=== PATIENT | female | born 1955 | race Caucasian/White ===

== ENCOUNTER → 2016-11-27 16:57 | Outpatient (CLI) | payer MEDICARE, MEDICAID ==
[2016-10-04 13:15] VITALS: BMI 26.5
[~2016-11-27 16:57] MED LIST: BAYER CHEWABLE81 MG PO; CLARITIN-D1 TAB.SR1 PO; COREG 3.1253.125 MG PO; COREG CR10 MG PO; CYCLOBENZAPRINE10 MG PO; FUROSEMIDE20 MG PO; HYDROCODONE-APA1 TAB PO; ISOSORBIDE MONO30 M1 PO; K-TAB10 MEQ PO; LIPITOR40 MG PO; LOPRESSOR25 MG PO; OMEPRAZOLE20 M1 PO; PERCOCET 10/3251 TA1 PO; PREMPRO 0.625/21 TA1 PO; VALIUM5 MG PO
== END | disposition home or self-care (01) ==
LOC: D.MAMMO 14:00
DX: Z12.31 Encounter for screening mammogram for malignant neoplasm of breast (principal)

== ENCOUNTER → 2017-04-11 15:05 | Outpatient (CLI) | payer MEDICARE, MEDICAID ==
[2016-10-04 13:15] VITALS: BMI 26.5
== END | disposition home or self-care (01) ==
LOC: D.CT 11:30
DX: J32.9 Chronic sinusitis, unspecified (principal); R51 Headache

== ENCOUNTER 2017-05-14 05:55 | Day surgery (SDC) | payer MEDICARE, MEDICAID ==
[2017-05-13 11:22] LABS: HEMATOCRIT 38.5 % (36.0-48.0); HEMOGLOBIN 12.6 g/dL (12-16); MCH 30.7 pg (26.0-34.0); MCHC 32.7 g/dL (31.0-37.0); MCV 93.9 fL (80.0-100.0); MEAN PLATELET VOLUME 10.5 fL (7.4-10.4); RBC 4.1 10x6/uL (4.00-5.40); RDW 12.6 % (11.5-14.5); WBC 4.6 10x3/uL (4.8-10.8)
[2017-05-13 11:33] LABS: ANION GAP 13.1 mmol/L (8-16); CARBON DIOXIDE 24.7 mmol/L (21.0-32.0); CREATININE - SERUM 0.9 mg/dL (0.6-1.3); POTASSIUM - SERUM 3.8 mmol/L (3.5-5.1)
[~2017-05-14] VITALS: Ht 170.2 cm; Wt 77.1 kg
--- NOTE | ~2017-05-14 | OP ---
PATIENT NAME: ISMAEL WEST MEDICAL RECORD: [id number] :55 LOCATION:D.OPS ADMISSION DATE: SURGEON: MAGED HALL MD OPERATION DATE: 05/14/17 DATE OF OPERATION: 05/14/2017 PREOPERATIVE DIAGNOSIS: Symptomatic umbilical hernia. POSTOPERATIVE DIAGNOSES: Symptomatic incarcerated umbilical hernia. PROCEDURE: Open incarcerated umbilical hernia repair with mesh utilizing a Proceed ventral patch 4.3 cm x 4.3 cm. SURGEON: Maged Hall MD WELT WHEELER: None. BLOOD LOSS: Minimal. ANESTHESIA: General. COMPLICATIONS: None. The risks, possible complications, and alternatives to the procedure were explained to the patient. She elects to proceed. We discussed the benefits of open repair versus laparoscopic repair. The patient states that she did want to have mesh placed in order to avoid recurrence of the hernia. OPERATIVE COURSE: The patient was conveyed to the operating room electively on 05/14/2017. General anesthesia was induced by the anesthesia staff. A midline incision was accomplished. Sharp dissection was carried down to the level of some incarcerated omentum. This was sharply freed up from the surrounding connective tissue and the skin. The omentum was then returned to the peritoneal cavity. A Proceed ventral patch was then placed in the intraperitoneal compartment. It was sutured to the surrounding edge of the hernia defect. It was sutured to the fascia that comprised the hernia defect. The 2 tags were sutured to the surrounding fascia with 0 Vicryl sutures. I then closed the fascia over the midline with interrupted horizontal mattress of 0 Vicryls. The subdermis was approximated with interrupted 3-0 Vicryls. The skin was approximated with multiple interrupted 4-0 Vicryl Rapide sutures and then Dermabond. The patient was then extubated and conveyed to post-anesthesia care unit where she was in stable condition. She is going to be dismissed home on [place] for pain. I will see her in the office in 2-3 weeks. TRANSINT:[id number] Voice Confirmation ID: [id number] DOCUMENT ID: [id number] OPERATIVE REPORT [id number] ISMAEL WEST MAGED HALL MD CC: JENNIFER LAZO MD and VAIBHAV VILLATORO MD [id number] DICTATION DATE: 05/14/17 1007 SPA ASSISTANT MANAGER: 05/14/17 1032 [facility] [address] [facility] [place] [address]
[~2017-05-14 05:55] MED LIST changes: +LYRICA50 MG PO
[2017-05-14 07:17] VITALS: BP 119/70; Ht 170.2 cm; Wt 77.1 kg
--- NOTE | 2017-05-14 10:16 | NUR ---
PATIENT FALLS ASLEEP DURING PAIN ASSESMENT
--- NOTE | 2017-05-14 10:21 | NUR ---
THE PATIENT IS SLURRING HER SPEECH AND IS SEDATED.
--- NOTE | 2017-05-14 10:25 | NUR ---
PT REQUESTED PAIN MEDICATION. DR MURRAY CONSULTED ABOUT THE PATIENTS PAIN LEVEL, O2 SAT AND SEDATION. DR MURRAY ORDERED DISCHARGE FROM PACU WITH NO MORE NARCOTICS.
--- NOTE | 2017-05-14 10:26 | NUR ---
PT APPEARS TO BE RESTING COMFORTABLE
== END 2017-05-14 12:45 | disposition home or self-care (01) ==
LOC: D.OPS 05:55 → D.PAN 07:30 → D.OPS 07:30
PROVIDERS: Anesthesiology
DX: K42.0 Umbilical hernia with obstruction, without gangrene (principal); Z01.812 Encounter for preprocedural laboratory examination

== ENCOUNTER → 2018-04-28 10:15 | Outpatient (CLI) | payer MEDICARE, MEDICAID ==
[2017-05-14 07:17] VITALS: BMI 26.7
== END | disposition home or self-care (01) ==
LOC: D.CT 10:15
DX: J32.9 Chronic sinusitis, unspecified (principal)

== ENCOUNTER → 2018-05-07 13:41 | Outpatient (CLI) | payer MEDICARE, MEDICAID ==
[2017-05-14 07:17] VITALS: BMI 26.7
== END | disposition home or self-care (01) ==
LOC: D.MRI 13:41
DX: R22.0 Localized swelling, mass and lump, head (principal)

== ENCOUNTER → 2020-01-07 10:53 | Outpatient (CLI) | payer MEDICARE, MEDICAID ==
[2017-05-14 07:17] VITALS: BMI 26.7
== END | disposition home or self-care (01) ==
LOC: D.HCCECHO 10:53
PROVIDERS: ATTEND Internal Medicine Cardiovascular Disease
DX: I20.9 Angina pectoris, unspecified (principal)

== ENCOUNTER 2020-02-08 11:20 | Outpatient (CLI) | payer MEDICARE, MEDICAID ==
[~2020-02-08] VITALS: Ht 167.6 cm; Wt 77.3 kg
--- NOTE | ~2020-02-08 | HEMODYNAMI ---
PATIENT:ISMAEL WEST MEDICAL RECORD: [id number] : 55 LOCATION:DRAFAT ADMISSION DATE: 02/08/20 Generatedon:02/08/202013:38 Patient name: ISMAEL WEST Patient #: [id number] SSN: [id number] : 1955 Date of study: 02/08/2020 Page: Of Hemodynamic Procedure Report Patient Data Patient Demographics Procedure consent was obtained First Name: ISMAEL Gender: Female Last Name: BRETT : 1955 Middle Initial: DEANDRE Age: 64 year(s) Patient #: [id number] Race: SSN: [id number] Additional ID: [id number] Contact details [address]: [address] [place] [address] State: [place] City: [place] Zip code: [address] Past Medical History Allergies Allergen Reaction Date Comments Reported Other allergy 02/08/2020 N Admission Admission Data Admission Date: 02/08/2020 Admission Time: 11:20 Arrival Date: 02/08/2020 Arrival Time: 0:00 Insurance Payor: Medicare [facility] #: [id number] Height (in.): 66.14 BSA: 1.87 (m2) Height (cm.): 168 BMI: 27.28 (kg/m2) Weight (lbs.): 169.76 Weight (kg.): 77 Lab Results Lab Result Date: 02/08/2020 Lab Result Time: 0:00 Biochemistry Name Units Result Min Max BUN mg/dl 26 --(----)-* 7 18 Creatinine mg/dl 1.3 --(---*)-- 0.6 1.3 eGFR ml/min 44 *-(----)-- 90 120 NONAFRICAN CBC Name Units Result Min Max Hematocrit % 38.9 *-(----)-- 42 54 Hemoglobin g/dl 13 -*(----)-- 13.5 17.5 Procedure Procedure Types Cath Procedure Diagnostic Procedure LHC LHC w/Coronaries FFR/IVUS FFR Initial Sedation Charges Moderate Sedation up to 30 minutes Procedure Description Procedure Date Procedure Date: 02/08/2020 Procedure Start Time: 13:08 Procedure End Time: 13:35 Procedure Staff Name Function Inderjit Billy MD Performing Physician Vivian Root RT Scrub Paula Ortiz RN Nurse Sandy Delarosa RT Monitor Procedure Data Cath Procedure Fluoroscopy Diagnostic fluoroscopy Total fluoroscopy Time: 3.8 time: 3.8 min min Diagnostic fluoroscopy Total fluoroscopy dose: 524 dose: 524 mGy mGy Contrast Material Contrast Material Type Amount (ml) Isovue 300 78 Entry Location Entry Primary Successful Side Size Upsize Upsize Entry Closure Succes sful Closure Location (Fr) 1 (Fr) 2 (Fr) Remarks Device Remarks Femoral Right 5 Fr Exoseal artery Estimated blood loss: 10 ml Diagnostic catheters Device Type Used For End Catheter Placement MULTIPACK JL 4.0 5Fr Procedure catheter MULTIPACK 3DRC 5Fr Procedure catheter MULTIPACK Pigtail 5 Fr Ventriculography catheter MULTIPACK JL 4.0 5Fr Procedure catheter Procedure Complications No complications Procedure Medications Medication Administration Route Dosage 0.9% NaCl I.V. 100 ml/hr Oxygen etCO2 Nasal cannula 2 l/min Lidocaine 2% added to field 20 Heparin Flush Bag added to field 2 bags (1000units/500ml NS) Versed I.V. 2 mg Fentanyl I.V. 50 mcg Versed I.V. 2 mg Fentanyl I.V. 50 mcg Heparin Bolus I.V. 2000 units Hemodynamics Rest BSA: 1.87 (m2) HGB: 13 (g/dl) O2 Consumption: Estimated: 188.07 (ml/min) O2 Cons umption indexed: Estimated:100.57 (ml/min/m) Heart Rate: 88 (bpm) Pressure Samples Time Site Value (mmHg) Purpose Heart Use Rate(bpm) 13:20 LV 122/-2,12 Snapshot 86 13:20 LV 127/-1,12 Snapshot 85 13:21 AO 121/58(86) Pullback 85 13:21 LV 128/-1,10 Pullback 85 Gradients Valve Time Site 1 Site 2 Mean SEP/DFP Peak To Heart Use (mmHg) (sec/min) Peak Rate (mmHg) (bpm) Aortic 13:21 LV AO 10 17 7 85 128/-1,10 121/58(86) Calculations Valve P-P Mean Valve Index Valve Source Name Gradient Area Flow (cm2) Aortic 7 10 7 10 Snapshots Pre Cath Intra NCS Post Cath Vital Signs Time Heart Resp SPO2 etCO2 NIBP (mmHg) Rhythm Pain Sedation Rate (ipm) (%) (mmHg) Status Level (bpm) 12:52:43 90 29 95 33.6 95/71(86) NSR 0 (11) 10(A) , No pain 12:56:46 88 18 96 26.1 94/64(78) NSR 0 (11) 10(A) , No pain 13:00:48 86 12 96 26.9 96/70(80) NSR 0 (11) 10(A) , No pain 13:04:52 85 13 95 16.4 94/62(77) NSR 0 (11) 10(A) , No pain 13:08:53 86 14 96 38.8 101/65(80) NSR 0 (11) 10(A) , No pain 13:12:59 83 15 96 38.1 97/66(80) NSR 0 (11) 10(A) , No pain 13:17:03 86 12 95 41.1 100/65(80) NSR 0 (11) 9(A) , No pain 13:20:59 50 12 96 40.3 120/96(100) NSR 0 (11) 9(A) , No pain 13:25:04 84 13 96 39.6 99/66(78) NSR 0 (11) 9(A) , No pain 13:29:08 85 13 94 38.8 91/66(76) NSR 0 (11) 9(A) , No pain 13:33:08 84 13 94 14.9 96/67(82) NSR 0 (11) 9(A) , No pain Medications Time Medication Route Dose Verified Delivered Reason Notes Effectiveness by by 12:51:51 0.9% NaCl I.V. 100 Inderjit Paula used for ml/hr Wenceslao Ortiz hat body inspector 12:51:57 Oxygen etCO2 2 Inderjit Paula used for Nasal l/min Wenceslao Ortiz procedure cannula RN 12:52:01 Lidocaine 2% added 20ml Inderjit Inderjit for local to vial Wenceslao Billy MD anesthetic field 12:52:06 Heparin Flush added 2 Inderjit Inderjit used for Bag to bags Wenceslao Billy MD procedure (1000units/500ml field NS) 13:05:55 Versed I.V. 2 mg Inderjit Paula for sedation Wenceslao Ortiz RN 13:06:00 Fentanyl I.V. 50 Inderjit Paula for sedation mcg Wenceslao Ortiz RN 13:14:08 Versed I.V. 2 mg Inderjit Paula for sedation Wenceslao Ortiz RN 13:14:11 Fentanyl I.V. 50 Inderjit Paula for sedation mcg Wenceslao Ortiz RN 13:27:25 Heparin Bolus I.V. 2000 Inderjit Paula for units Wenceslao Ortiz anticoagulation game farm supervisor Log Time Note 12::40 Informed consent obtained and on chart 12:34:32 Procedure Status Elective Heart Cath (OP). 12:34:36 Paula Ortiz RN sent for patient. Start room use. 12:34:40 Time tracking: Regular hours (M-F 7:00 - 5:00) 12:34:47 Plan of Care:Hemodynamics will remain stable., Cardiac rhythm will remain stable., Comfort level will be maintained., Respiratory function will remain adequate., Patient/ family verbilizes understanding of procedure., Procedure tolerated without complication., Recovers from procedure without complications.. 12:37:46 Lab Result : Hemoglobin 13 g/dl 12:37:46 Lab Result : eGFR NONAFRICAN 44 ml/min 12:37:46 Lab Result : BUN 26 mg/dl 12:37:46 Lab Result : Creatinine 1.3 mg/dl 12:37:46 Lab Result : Hematocrit 38.9 % 12:37:54 Arrival Date: 02/08/2020 12:00:00 AM 12:38:13 Insurance Payor : Medicare 12:38:21 Patient Height : 66.14 inches 12:38:26 Patient Weight : 169.76 lbs 12:40:17 Stress Test: yes; abnormal ANTERIORLY AND APICALLY 12:40:23 Lab results completed and on chart. 12:40:47 Patient allergic to Other allergyPCN 12:49:09 Patient received from Pre/Post Procedure Room to CCL 1 Alert and oriented. Tansferred to table in Supine position. 12:49:11 Warm blankets applied, and clara hugger turned on for patient comfort. 12:49:12 Correct patient and procedure confirmed by team. 12:49:13 ECG and BP/O2 sat monitors applied to patient. 12:51:42 Vital chart was started 12:51:51 0.9% NaCl 100 ml/hr I.V. was administered by Paula Ortiz RN; used for procedure; Verbal order read back and verified. 12:51:57 Oxygen 2 l/min etCO2 Nasal cannula was administered by Paula Ortiz RN; used for procedure; Verbal order read back and verified. 12:52:01 Lidocaine 2% 20ml vial added to field was administered by Inderjit Billy MD; for local anesthetic; Verbal order read back and verified. 12:52:06 Heparin Flush Bag (1000units/500ml NS) 2 bags added to field was administered by Inderjit Billy MD; used for procedure; Verbal order read back and verified. 12:55:40 Baseline sample Acquired. 12:55:46 Rhythm: sinus rhythm 12:55:48 Full Disclosure recording started 12:56:12 H&P Date Dictated: 02/03/2020 Within 30 days and on chart., H&P Addendum completed by physician on day of procedure. (MUST COMPLETE FOR ALL OUTPATIENTS). 12:56:14 Pre-procedure instructions explained to patient. 12:56:15 Family unavailable. 12:56:25 Patient NPO since Midnight. 12:56:28 Is the patient allergic to Iodine/contrast media? No. 12:56:30 Was the patient premedicated? Yes 12:56:32 Is patient on blood thinner?No 12:56:35 Patient diabetic? Yes. 12:56:38 If diabetic: On Metformin? No 12:56:58 Previous problem with sedation/anesthesia? N/A ? 12:57:02 Snore? Yes 12:57:03 Sleep apnea? No 12:57:11 Patient pain scale 0/10 ?. 12:57:26 IV patent on arrival in left forearm with 0.9% NaCl at [facility]. 12:57:36 Right groin area was prepped with chlora-prep and draped in sterile fashion 12:57:58 Sharps counted by scrub and verified by R.N. 12:58:03 Physician arrived 12:58:04 --------ALL STOP TIME OUT------ 12:58:09 Final Timeout: patient, procedure, and site verified with staff and physician. All members of the team are in agreement. 12:59:31 Right groin site verified by team. 12:59:36 Fire Safety Assessment: A--An alcohol-based skin anteseptic being used preoperatively., C--Open oxygen or nitrous oxide is being used., D--An ESU, laser, or fiber-optic light is being used. 12:59:44 Physical assessment completed. ASA score P 2 - A patient with mild systemic disease as per Inderjit Billy MD. 13:00:02 3b) 30-44 Moderately reduced kidney function. 13:00:08 Maximum allowable contrast dose (3.7 X eGFR X 0.75)122 ml. 13:00:14 Sedation plan: IV Moderate Sedation Medication:Versed, Fentanyl 13:00:21 Use device set Femoral Dx 13:00:23 ACIST Syringe (86978) opened to sterile field. 13:00:23 Bag Decanter (2002S) opened to sterile field. 13:00:24 Medline Cath Pack ([id number]) opened to sterile field. 13:00:25 ACIST Hand Control (32928) opened to sterile field. 13:00:26 ACIST Manifold (31996) opened to sterile field. 13:00:28 DIAGNOSTIC Multipack 5Fr catheter set (IG7356) opened to sterile field. 13:00:29 Tegaderm 4 x 4 (1626W) opened to sterile field. 13:00:31 SHEATH 5FR [place] (PWK531) opened to sterile field. 13:00:31 EMERALD Guide Wire (880-364) opened to sterile field. 13:05:55 Versed 2 mg I.V. was administered by Paula Ortiz RN; for sedation; Verbal order read back and verified. 13:06:00 Fentanyl 50 mcg I.V. was administered by Paula Ortiz RN; for sedation; Verbal order read back and verified. 13:08:17 Procedure started. 13:08:30 Local anesthetic to right femoral artery with Lidocaine 2% by Inderjit Billy MD.INITIAL ACCESS ONLY 13:08:51 A 5 Fr sheath was inserted into the Right Femoral artery 13:11:41 Zero performed for pressure channel P1 13:13:41 A MULTIPACK JL 4.0 5Fr catheter was advanced over the wire and used for Procedure. 13:13:54 LCA angiography performed. 13:14:08 Versed 2 mg I.V. was administered by Paula Ortiz RN; for sedation; Verbal order read back and verified. 13:14:11 Fentanyl 50 mcg I.V. was administered by Paula Ortiz RN; for sedation; Verbal order read back and verified. 13:14:54 Catheter removed. 13:16:37 A MULTIPACK 3DRC 5Fr catheter was advanced over the wire and used for Procedure. 13:18:32 RCA angiography performed. 13:19:04 Catheter removed. 13:19:53 A MULTIPACK Pigtail 5 Fr catheter was advanced over the wire and used for Ventriculography. 13:20:01 LV angiography performed. 13:21:12 LV hemodynamics recorded. 13:21:21 EF : 55 % 13:22:52 Catheter removed. 13:24:32 [place] Verrata Plus pressure wire (78562I) opened to sterile field. 13:24:33 TUBING High Pressure Extension Tubing (Billy) ([id number]) opened to sterile field. 13:24:49 Proceeding to intervention. 13:26:05 A MULTIPACK JL 4.0 5Fr catheter was advanced over the wire and used for Procedure. 13:26:21 FFR/IFR wire advanced. 13:27:25 Heparin Bolus 2000 units I.V. was administered by Paula Ortiz RN; for anticoagulation; Verbal order read back and verified. 13:30:12 pCirc lesion measured at .85 with IFR 13:31:04 Catheter removed. 13:31:07 Wire removed. 13:31:09 Guide Catheter removed. 13:31:22 Sheath removed intact; hemostasis achieved with Exoseal to the Right Femoral artery. 13:31:28 Procedure ended.(Physican Out) 13:32:12 Fluoroscopy time 03.80 minutes. 13:32:17 Fluoroscopy dose: 524 mGy 13:32:17 Flurop Dose total: 524 13:32:25 Dose Area Product 77943 mGy/cm. 13:32:29 Contrast amount:Isovue 300 78ml. 13:32:31 Maximum allowable dose exceeded? No. 13:32:33 Sharps counted by scrub and verified by R.N. 13:32:36 Insertion/operative site no bleeding no hematoma. 13:32:55 Post Procedure Pulses reassessed and unchanged 13:33:02 Post-procedure physical assessment completed. ASA score P 3 - A patient with severe systemic disease as per Inderjit Billy MD. 13:33:05 Post procedure rhythm: unchanged. 13:33:08 Estimated blood loss: 10 ml 13:33:10 Post procedure instruction explained to patient.Patient verbalizes understanding. 13:33:53 Procedure type changed to Cath procedure, Diagnostic procedure, LHC, LHC w/Coronaries, FFR/IVUS, FFR Initial, Sedation Charges, Moderate Sedation up to 30 minutes 13:33:55 Procedure and supply charges have been captured, reviewed, submitted and are correct. 13:34:49 Procedure Complication : No complications 13:35:11 Vital chart was stopped 13:35:14 [facility] Findings: MVD- CABG consult 13:35:16 Operative report dictated upon procedure completion. 13:35:17 See physician's report for complete and final results. 13:35:21 Report given to Pre/Post Procedure Room. 13:35:27 Patient transfered to Pre/Post Procedure Room with Stretcher. 13:35:30 Procedure ended. 13:35:30 Full Disclosure recording stopped 13:35:39 ACT drawn and resulted at 168 seconds. (normal therapeutic range 180-240 seconds). 13:35:39 End room use (Document Last) Device Usage Item Name Manufacture Quantity Catalog Hospital Part Current Minima l Lot# / Number Charge Number Stock Stock Serial# Code ACIST Acist 1 65797 618742 227240 614291 20 Syringe Medical (57892) Systems Inc Bag Microtek 1 627298 31097 347660 5 Decanter Medical Inc. () Medline Medline 1 [id number] 838569 98883 549919 5 Cath Pack ([id number]) ACIST Hand Acist 1 19274 955288 423370 829168 5 Control Medical (02863) Systems Inc ACIST Acist 1 06807 503576 421149 060077 5 Manifold Medical (71963) Systems Inc DIAGNOSTIC Cardinal 1 PF2325 099435 40127 370084 30 Compression Kinetics 5Fr catheter set (BN5510) Tegaderm 4 3M 1 1626W 801012 139004 691678 5 x 4 (1626W) SHEATH 5FR Terumo 1 KLI854 867462 021890 552178 5 [place] (ZGO054) EMERALD Cardinal 1 502-447 959515 419580 480971 5 Guide Wire Health (995-774) MULTIPACK Cardinal 1 753864 5 JL 4.0 5Fr Health catheter MULTIPACK Cardinal 1 485295 5 3DRC 5Fr Health catheter MULTIPACK Cardinal 1 946339 5 Pigtail 5 Health Fr catheter [place] 1 [id number] 196064 [id number] 275803 5 Verrata Plus pressure wire (05052S) TUBING High Merit 1 [id number] 561207 79304 226452 10 Pressure Medical Extension Tubing (Wenceslao) ([id number]) Signature Audit [place] Stage Time Signature Unsigned Intra-Procedure 02/08/2020 Sandy Delarosa 1:36:58 PM RT(R) Intra-Procedure 02/08/2020 Paula Ortiz 1:37:30 PM RN Intra-Procedure 02/08/2020 Inderjit Billy MD 1:37:58 PM [place] [id number] [place] [address]
[2020-02-08] MEDS ORDERED: BENADRYL25 MG PO (11:40)
[2020-02-08] MEDS ORDERED: LIPITOR40 MG PO (11:41)
[2020-02-08] MEDS ORDERED: OMEPRAZOLE40 MG PO (11:42)
[2020-02-08] MEDS ORDERED: NORVASC10 MG PO (11:43)
[2020-02-08] MEDS ORDERED: CLARITIN 10 MG10 MG PO (11:44)
[2020-02-08] MEDS ORDERED: EXTRA PAIN REL1 EACH PO (11:46)
[2020-02-08] MEDS ORDERED: PROVERA 5 MG TAB5 MG PO (11:51)
[2020-02-08] MEDS ORDERED: LYRICA75 MG PO (11:51)
[2020-02-08] MEDS ORDERED: GLIMEPIRIDE4 MG PO (11:53)
[2020-02-08] MEDS ORDERED: AZELASTINE HCL6 ML EACH EYE (11:55)
[2020-02-08] MEDS ORDERED: LORZONE PO (11:57)
[2020-02-08] MEDS ORDERED: COREG12.5 MG PO (11:58)
[2020-02-08 12:17] LABS: BASOPHILS 0.4 % (0-2); EOSINOPHILS 2.5 % (0-7); HEMATOCRIT 38.9 % (36.0-48.0); IMMATURE GRANULOCYTES 0.4 % (0-5); LYMPHOCYTES 27.5 % (15-50); MCH 30.7 pg (26.0-34.0); MCHC 33.4 g/dL (31.0-37.0); MEAN PLATELET VOLUME 9.9 fL (7.4-10.4); MONOCYTES 9.4 % (2-11); NEUTROPHILS 59.8 % (40-80); PLATELET COUNT 214 10x3/uL (130-400); RBC 4.23 10x6/uL (4.00-5.40); RDW 12.2 % (11.5-14.5); WBC 5.1 10x3/uL (4.8-10.8)
[2020-02-08 12:18] VITALS: BP 122/75; Ht 167.6 cm; Wt 77.3 kg
[2020-02-08 12:29] LABS: ANION GAP 14.6 mmol/L (8-16); CALCIUM 8.6 mg/dL (8.5-10.1); CARBON DIOXIDE 25.9 mmol/L (21.0-32.0); CHOL - HDL RATIO 3.3 ratio (2.3-4.1); CREATININE - SERUM 1.3 mg/dL (0.6-1.3); LDL-HDL RATIO 1.1 ratio (1.5-3.5); POTASSIUM - SERUM 3.5 mmol/L (3.5-5.1)
--- NOTE | 2020-02-08 13:52 | NUR ---
PT ARRIVED BY STRETCHER. PLACED ON MONITORS. ASSESSMENT COMPLETED. VSS AT THIS TIME. CALL LIGHT WITHIN REACH.
--- NOTE | 2020-02-08 14:07 | NUR ---
RIGHT GROIN DRESSING C/D/I. NO S/S OF HEMATOMA NOTED. CALL LIGHT WITHIN REACH. VSS AT THIS TIME. TOLERATING SIPS OF WATER.
--- NOTE | 2020-02-08 14:37 | NUR ---
KRISSY, RN WITH DR. MÉNDEZ CAME BY AND SPOKE WITH PT ABOUT FOLLOW UP APPT IN CV CLINIC. APPT CARD GIVEN TO PATIENT WITH INFORMATION BOOKLET. RIGHT GROIN DRESSING C/D/I. NO S/S OF HEMATOMA NOTED. CALL LIGHT WITHIN REACH.
--- NOTE | 2020-02-08 14:45 | NUR ---
PT ON BEDPAN. VOIDED APPROX 400cc OF CLEAR YELLOW URINE. MEY-CARE GIVEN. RIGHT GROIN DRESSING C/D/I. NO S/S OF HEMATOMA NOTED. CALL LIGHT WITHIN REACH. PT RESTING COMFORTABLY.
--- NOTE | 2020-02-08 15:00 | NUR ---
RIGHT GROIN DRESSING C/D/I. NO S/S OF HEMATOMA NOTED. DR. MORGAN AT BEDSIDE AND SPOKE WITH PT REGARDING CV CONSULT.
--- NOTE | 2020-02-08 15:30 | NUR ---
RIGHT GROIN DRESSING C/D/I. NO S/S OF HEMATOMA NOTED. CALL LIGHT WITHIN REACH. VSS. HEAD OF BED INC TO 30 DEGREES. TOLERATED WELL. SET UP WITH SANDWICH TRAY AND DRINK AT THIS TIME. WILL CONTINUE TO MONITOR.
--- NOTE | 2020-02-08 15:45 | NUR ---
PIV D/C'D WITH CATH TIP INTACT. TOLERATED WELL. RIGHT GROIN DRESSING C/D/I. NO S/S OF HEMATOMA NOTED. PT INSTRUCTED TO GET UP AND DRESSED AT THIS TIME.
--- NOTE | 2020-02-08 16:00 | NUR ---
DISCUSSED DISHCARGE INSTRUCTIONS WITH PT. SHE VOICED UNDERSTANDING.
--- NOTE | 2020-02-08 16:10 | NUR ---
PT AMUBLATED TO RESTROOM. VOIDED WITHOUT DIFFICULTY. STEADY GAIT NOTED.
--- NOTE | 2020-02-08 16:20 | NUR ---
PT TAKEN DOWN TO VEHICLE BY WHEELCHAIR. NO S/S OF DISTRESS NOTED. ALL BELONGINGS AND PAPERWORK IN HAND. RIGHT GROIN DRESSING C/D/I. NO S/S OF HEMATOMA NOTED.
== END 2020-02-08 16:20 | disposition home or self-care (01) ==
LOC: D.CATH 11:20
PROVIDERS: ATTEND Internal Medicine Cardiovascular Disease
DX: I25.119 Atherosclerotic heart disease of native coronary artery with unspecified angina pectoris (principal); R94.30 Abnormal result of cardiovascular function study, unspecified; I10 Essential (primary) hypertension; R06.00 Dyspnea, unspecified; E11.9 Type 2 diabetes mellitus without complications; E78.5 Hyperlipidemia, unspecified; K21.9 Gastro-esophageal reflux disease without esophagitis; Z79.84 Long term (current) use of oral hypoglycemic drugs

== ENCOUNTER 2020-02-11 16:29 | Inpatient (IN) | payer MEDICARE, MEDICAID ==
[~2020-02-11] VITALS: Ht 170.2 cm; Wt 77.6 kg
[~2020-02-11 16:29] MED LIST changes: +AZELASTINE HCL6 ML EACH EYE; +BENADRYL25 MG PO; +CLARITIN 10 MG10 MG PO; +COREG12.5 MG PO; +EXTRA PAIN REL1 EACH PO; +GLIMEPIRIDE4 MG PO; +LORZONE PO; +LYRICA75 MG PO; +NORVASC10 MG PO; +OMEPRAZOLE40 MG PO; +PROVERA 5 MG TAB5 MG PO
[2020-02-11 18:56] LABS: BILIRUBIN NEGATIVE (NEGATIVE); GLUCOSE NEGATIVE (NEGATIVE); KETONE NEGATIVE (NEGATIVE); NITRITE NEGATIVE (NEGATIVE); SPECIFIC GRAVITY 1.015 (1.005-1.020); UROBILINOGEN NORMAL (NORMAL)
[2020-02-11 19:03] LABS: INR 1.04 (0.85-1.17); PROTIME 13.5 SECONDS (11.6-15.0)
[2020-02-11 19:31] LABS: BASOPHILS 0.6 % (0-2); EOSINOPHILS 2.8 % (0-7); HEMATOCRIT 41.1 % (36.0-48.0); HEMOGLOBIN 13.8 g/dL (12-16); IMMATURE GRANULOCYTES 0.2 % (0-5); LYMPHOCYTES 26.3 % (15-50); MCH 31.1 pg (26.0-34.0); MCHC 33.6 g/dL (31.0-37.0); MCV 92.6 fL (80.0-100.0); MEAN PLATELET VOLUME 9.8 fL (7.4-10.4); NEUTROPHILS 59.1 % (40-80); PLATELET COUNT 217 10x3/uL (130-400); RBC 4.44 10x6/uL (4.00-5.40); RDW 12.4 % (11.5-14.5); WBC 6.4 10x3/uL (4.8-10.8)
[2020-02-11 20:45] LABS: ALBUMIN 4.1 g/dL (3.4-5.0); ANION GAP 21.2 mmol/L (8-16); BILIRUBIN - TOTAL 0.5 mg/dL (0.2-1.3); CALCIUM 8.9 mg/dL (8.5-10.1); CARBON DIOXIDE 22.8 mmol/L (21.0-32.0); CREATININE - SERUM 1.2 mg/dL (0.6-1.3); PROTEIN - SERUM 8.3 g/dL (6.4-8.2)
[2020-02-12] MEDS ORDERED: ESTRACE1 MG PO (14:59)
[2020-02-16] VITALS (44 sets, daily range): BP systolic 101–140; BP diastolic 53–75; BMI 27.0; BMI 28.4
[2020-02-16 14:06] LABS: BASOPHILS 0.2 % (0-2); HEMOGLOBIN 10.8 g/dL (12-16); IMMATURE GRANULOCYTES 0.2 % (0-5); MCH 30.5 pg (26.0-34.0); MCHC 32.7 g/dL (31.0-37.0); MCV 93.2 fL (80.0-100.0); MEAN PLATELET VOLUME 9.4 fL (7.4-10.4); MONOCYTES 6.9 % (2-11); NEUTROPHILS 79.7 % (40-80); RBC 3.54 10x6/uL (4.00-5.40); RDW 12.6 % (11.5-14.5); WBC 8.2 10x3/uL (4.8-10.8)
[2020-02-16 14:29] LABS: APTT 30.9 SECONDS (22.8-39.4); INR 1.36 (0.85-1.17); PROTIME 16.7 SECONDS (11.6-15.0)
--- NOTE | 2020-02-16 14:49 | NUR ---
PT ARRIVED TO ROOM 1327 SEDATED FROM OR, ETT SECURED AND PLACED ON VENT BY RT, R IJ CVL DRESSING CDI, SEE IV FLOWSHEET, MIDSTERNAL DRESSING CDI SUBSTERNAL CTX2 20CM SUCTION NO AIR LEAK, BLOODY DRAINAGE, MIGNON DRAIN COMPRESSED, L FEMORAL A LINE IN PLACE GOOD WAVEFORM, RLE COBAN GROIN TO ANKLE, TEDS/SCDS IN PLACE, CEE DRAINING YELLOW URINE, L FOOT WITH CHRONIC WOUND, NO DRAINAGE, DR MÉNDEZ AWARE OF ABGS AND DOES NOT WANT BASE EXCESS TREATED, KCL TREATED FROM EXISTING BAG VIA BURETROL.
[2020-02-16 14:50] LABS: PLATELET COUNT 155 10x3/uL (130-400)
--- NOTE | 2020-02-16 17:36 | NUR ---
PER DR VILLALBA PROPOFOL INITIATED, DR MÉNDEZ AWARE, WILL KEEP ON VENT TONIGHT
--- NOTE | 2020-02-16 19:54 | NUR ---
NOTIFIED OF INCREASED PVC'S ON CM, UPDATED ON PT INCLUDING V/S AND CURRENT GTT'S/TEMP/UOP, ORDERS RECEIVED TO GET ABG'S, RESPIRATORY THERAPIST NOTIFIED, NO FURTHER AT THIS TIME, WILL CONTINUE TO MONITOR
--- NOTE | 2020-02-16 20:16 | NUR ---
NOTIFIED OF ABG RESULTS, ORDERS RECEIVED; GIVE 40 KCL OVER TWO HOURS, RECHECK ABG'S AFTER POTASSIUM INFUSION, NO FURTHER AT THIS TIME, WILL CONTINUE TO MONITOR
--- NOTE | 2020-02-16 20:50 | NUR ---
SON LISA CHOU CALLED, PASSWORD VERIFIED, PHONE NUMBER [phone], UPDATE GIVEN, QUESTIONS ANSWERED, NO CONCERNS FROM SON, NO FURTHER AT THIS TIME, WILL CONTINUIE TO MONITOR
--- NOTE | 2020-02-16 23:45 | NUR ---
NOTIFIED OF ABG RESULTS, ORDERS RECEIVED TO REPEAT 40 KCL OVER TWO HOURS THEN REPEAT ABG'S. NO FURTHER AT THIS TIME, WILL CONTINUE TO MONITOR
[2020-02-17] VITALS (54 sets, daily range): BP systolic 105–139; BP diastolic 52–76; Ht 170.2 cm; Wt 77.6 kg
--- NOTE | 2020-02-17 01:10 | NUR ---
PT WAKING WITH EYES OPEN MOVING ALL EXTREMETIES AND TAPPING HANDS ON BEDSIDE, REORIENTED AND CALMED, ASKED IF PT WAS IN PAIN, PT SHOOK HEAD YES, PAIN MED GIVEN PER MAR/ORDERS, PT RELAXED VSS, NSR ON CM, WILL CONTINUE TO MONITOR
--- NOTE | 2020-02-17 03:00 | NUR ---
PT FREQUENTLY PULLING LEG UP, MULTIPLE ATTEMPTS TO REORIENT AND REPOSITION FOR COMFORT, TITRATING SEDATION PER MAR/ORDERS, PT CONTINUES TO MOVE BOTH LEGS AND TAPPING ON BEDSIDE WITH HANDS, ALL VSS, WILL COTNTINUE TO ASSESS
--- NOTE | 2020-02-17 04:05 | NUR ---
NOTIFIED OF REPEAT ABG'S, UPDATE GIVEN INCLUDING V/S& UOP, ORDERS RECEIVED" REPEAT 40 KCL OVER TWO HOURS, NO FURTHER AT THIS TIME, PT VSS NSR ON CM, WILL CONTINUE TO MONITOR
[2020-02-17 05:57] LABS: HEMATOCRIT 31.2 % (36.0-48.0); MCH 30.3 pg (26.0-34.0); MCHC 32.1 g/dL (31.0-37.0); MCV 94.5 fL (80.0-100.0); MEAN PLATELET VOLUME 9.7 fL (7.4-10.4); RBC 3.3 10x6/uL (4.00-5.40); RDW 13.2 % (11.5-14.5); WBC 7.1 10x3/uL (4.8-10.8)
[2020-02-17 06:33] LABS: ALBUMIN 2.7 g/dL (3.4-5.0); ANION GAP 14.8 mmol/L (8-16); BILIRUBIN - TOTAL 0.55 mg/dL (0.2-1.3); CARBON DIOXIDE 21.4 mmol/L (21.0-32.0); MAGNESIUM - SERUM 1.9 mg/dL (1.8-2.4); POTASSIUM - SERUM 4.2 mmol/L (3.5-5.1); PROTEIN - SERUM 5.7 g/dL (6.4-8.2)
[2020-02-17 06:45] LABS: CALCIUM 6.5 mg/dL (8.5-10.1)
--- NOTE | 2020-02-17 09:30 | NUR ---
EXTUBATED BY RT AFTER TALKING WITH DR VILLALBA VIA PHONE.
--- NOTE | 2020-02-17 10:30 | NUR ---
Aruna Armendariz-IVAN CHAHAL'Marianne PER ORDER.
--- NOTE | 2020-02-17 11:16 | OP ---
PATIENT NAME: ISMAEL WEST MEDICAL RECORD: [id number] :55 LOCATION:D.CVI D.CV06 ADMISSION DATE:02/16/20 SURGEON: DANIEL MÉNDEZ MD DATE OF OPERATION: 02/16/2020 SURGEON: Daniel Méndez MD CERTIFIED NURSE OPERATING ROOM: Leonel Mota MD OPERATION PERFORMED: 1. Coronary artery bypass graft times 4 (left internal mammary artery to LAD, reverse saphenous vein graft from aorta to first diagonal, aorta to obtuse marginal, aorta to posterior descending artery). 2. Endoscopic saphenous vein harvest. PREOPERATIVE DIAGNOSIS: Coronary artery disease. POSTOPERATIVE DIAGNOSIS: Coronary artery disease. ANESTHESIA: General endotracheal anesthesia. ESTIMATED BLOOD LOSS: Total cardiopulmonary bypass with Cell Saver retransfusion. COMPLICATIONS: None. SPECIMENS: None. CONDITION: Stable. DISPOSITION: CV ICU. OPERATIVE FINDINGS: 1. Small caliber greater saphenous vein harvested endoscopically from the right thigh. Open vein harvest of the right lower extremity was performed with a good segment of vein and this was used for the posterior descending graft. 2. A 3 mm internal mammary with excellent flow. The LAD was a 1.5 mm vessel deep within the epicardial fat. 3. First diagonal thin walled 1.5 mm vessel. 4. Obtuse marginal 2.0 mm vessel. A small caliber vein was used for this graft. 5. Posterior descending artery 2.0 mm. 6. Normal sized but fatty heart. OPERATIVE INDICATION: Coronary artery disease with unstable angina symptoms and positive stress test. The circumflex appeared to be 70% stenosis, so arterial conduit was not used on the circumflex due to concern for competitive flow. Additionally, IFR performed by cardiology was positive on the circumflex vessel. OPERATIVE PROCEDURE IN DETAIL: The patient was brought to the operative suite. General anesthesia was obtained, the patient was prepped and draped and greater saphenous vein harvested from right lower extremity utilizing endoscopic technique. Side branches were divided with electrocautery. Vessel was ligated proximally and distally and removed. Several large varicosities of the knee were noted and they were clipped in the calf and distally a good segment of vein was harvested open. Side branches were clipped. Vessel was cannulated and OPERATIVE REPORT [id number] ISMAEL WEST removed. Later, the leg was irrigated and closed in [address] Mota was possible for the vein harvest and this use of a second surgeon saved at least an hour and 15 minutes of general anesthetic time. Median sternotomy incision was made. Subcutaneous tissue was divided using electrocautery. Sternum was divided with a saw. The left hemisternum was elevated. Left lower cavity was entered. Left internal mammary artery and vein was taken down as a pedicle graft. Sternal retractor was placed. Pericardium was opened. Heparin was given. Aorta cannulated. Dual stage venous cannula was inserted. Internal mammary clipped distally and made ready for anastomosis. Activated clotting time was appropriately elevated. The patient was placed on cardiopulmonary bypass. Distal anastomotic sites were inspected. Antegrade cardioplegia cannula was inserted. The patient's temperature was not allowed to go below 35 degrees. Crossclamp was placed. Cardioplegia given antegrade and this was repeated at 15 to 20 minute intervals during the crossclamp time including down the completed vein graft. Distal anastomosis was performed in standard technique. Proximal anastomosis in single cross-clamp technique. The aortic root de-aired by removing the clamp. Proximal anastomoses tied down deairing the vein graft restoring the flow. Proximal and distal anastomosis sites inspected for bleeding. The patient resumed a spontaneous rhythm. Thorough irrigation was undertaken, gradually appropriately and the patient was fully rewarmed, weaned from cardiopulmonary bypass and was stable. The patient was decannulated. The cannula sites were oversewn. Protamine was given. Drains were placed in the mediastinum and left pleural cavity, one with the tip in the right pleural cavity. Ventricular pacing wire was placed. Hemostasis was assured. Pericardial fat was approximated. Left chest was evacuated and irrigated. The internal mammary harvest site inspected for bleeding. Sternum was closed with wires. Fascia was closed. Subcutaneous tissue was closed. Skin was closed. Dermabond was placed. The needle and sponge counts were reported as correct. The patient was taken to ICU in stable condition. TRANSINT:[id number] Voice Confirmation ID: [id number] DOCUMENT ID: [id number] DANIEL MÉNDEZ MD at 1116 CC: RASHEED MORGAN M.D. and JENNIFER LAZO [id number] DICTATION DATE: 02/16/20 1449 ARTIFICIAL FLOWERS DYER: 02/16/20 1977 ADM IN [place] [id number] [place] [address]
--- NOTE | 2020-02-17 15:30 | NUR ---
PT DANGLED AT SIDE OF BED. TOLERATED WELL. REQUIRING FREQUENT PAIN MEDS, REPORTS RELIEF FOR SHORT PERIODS.
--- NOTE | 2020-02-17 22:00 | NUR ---
CELESTE CASTAÑEDA CALLED, CONFIRMED WITH PT SHE IS OK WITH GIVING UPDATE TO ED, PT STATED "OKAY TO GIVE INFORMATION, HE IS ON MY LIST", UPDATE DONNIE, NO QUESTIONS OR CONCERNS STATED, WILL CONTINUE TO MONITOR
[2020-02-18] VITALS (25 sets, daily range): BP systolic 92–121; BP diastolic 52–66
[2020-02-18 05:55] LABS: HEMATOCRIT 29.1 % (36.0-48.0); HEMOGLOBIN 9.1 g/dL (12-16); MCH 30.2 pg (26.0-34.0); MCHC 31.3 g/dL (31.0-37.0); MEAN PLATELET VOLUME 9.5 fL (7.4-10.4); RBC 3.01 10x6/uL (4.00-5.40); RDW 13.1 % (11.5-14.5); WBC 6.4 10x3/uL (4.8-10.8)
[2020-02-18 05:56] LABS: MCV 96.7 fL (80.0-100.0)
[2020-02-18 06:47] LABS: ALBUMIN 2.4 g/dL (3.4-5.0); ALKALINE PHOSPHATASE 124 U/L (30-120); ALT (SGPT) 23 U/L (10-68); BILIRUBIN - TOTAL 1.03 mg/dL (0.2-1.3); CARBON DIOXIDE 25.7 mmol/L (21.0-32.0); CHLORIDE - SERUM 109 mmol/L (98-107); CREATININE - SERUM 0.8 mg/dL (0.6-1.3); GLUCOSE 147 mg/dL (74-106); MAGNESIUM - SERUM 1.7 mg/dL (1.8-2.4); PHOSPHOROUS 2.4 mg/dL (2.5-4.9); PROTEIN - SERUM 5.8 g/dL (6.4-8.2); SODIUM 143 mmol/L (136-145); UREA NITROGEN 8 mg/dL (7-18); eGFR NON AFRICAN AMERICAN 76 mL/min (90-120)
[2020-02-18 06:48] LABS: CALC OSMOLALITY 285 mosm/kg (275-300)
[2020-02-18 06:49] LABS: CALCIUM 6.7 mg/dL (8.5-10.1)
--- NOTE | 2020-02-18 07:30 | NUR ---
SHIFT REPORT RECEIVED. PT UP IN CHAIR. ON 4L O2 VIA NC. MIDSTERNAL INCISION WITH DRESSING C/D/I. MIDSTERNAL CT X 2 TO 20CM SUCTION. NO AIR LEAK NOTED. LEFT MIGNON DRAIN IN PLACE. DRESSING C/D/I. RLE HARVEST SITES WITH DRESSING C/D/I. LEFT LOWER EXTREMITY WITH DRESSING ON BACK OF LOWER LEG AND DRESSING TO LEFT FOOT. CEE CATHETER IN PLACE. CALL LIGHT IN REACH. NO FURTHER NEEDS AT THIS TIME. WILL CONTINUE TO MONITOR.
--- NOTE | 2020-02-18 07:37 | NUR ---
NOTIFIED OF MORNING LABS, NO NEW ORDERRS RECEIVED
--- NOTE | 2020-02-18 08:20 | NUR ---
TRANSFERRED TO BED. CHEST TUBES PULLED BY DR. MÉNDEZ. 4X4 APPLIED TO SITE, BIOPATCH APPLIED AROUND TPM WIRES, DRESSING SECURED WITH TAGEDERM DRESSING.
--- NOTE | 2020-02-18 11:08 | NUR ---
DR. MUKHERJEE AT BEDSIDE.
--- NOTE | 2020-02-18 12:20 | NUR ---
RESTING COMFORTABLY. MEAL TRAY DELIVERED AND SET UP. DR. VILLALBA AT BEDSIDE. NO FURTHER NEEDS. WILL CONTINUE TO MONITOR.
--- NOTE | 2020-02-18 14:09 | TEE ---
PATIENT:ISMAEL WEST MEDICAL RECORD: [id number] LOCATION:[place] [address] AGE OF PATIENT: 64 ADMISSION DATE: 02/16/20 SEX: F REFERRING PHYSICIAN: INTERPRETING PHYSICIAN: MIKEL NICOLE MD TRANSESOPHAGEAL ECHOCARDIOGRAM Date: 02/16/20 DEANNA CHARGE Y INDICATIONS: CABG PREMEDICATIONS: PATIENT'S RESPONSE PROCEDURE DOPPLER MEASUREMENTS: LVIT LA 3.4 PA RA LVOT RVOT Asc. Ao AV Gradient Peak AV Mean AV Area MV Gradient Peak MV Mean MV Area INTERPRETATION: Doppler: 2-D: COLOR FLOW DOPPLER NORMAL SALINE STUDY: MISCELLANOUS: DIAGNOSIS: PLAN: Drum Straightener:3 Dr. Joseph Link Knitting Machine Operator: Patsy YOUNG COMMENTS: VIRAJ PATIENT DATE OF SERVICE: 02/16/2020 PROCEDURE: Intraoperative transesophageal. Preprocedure shows normal segmental wall motion, normal wall thickening. Normal EF 55%. Aortic valve shows good valve excursion. Left atrium appears normal. Mitral valve appears normal. Trivial MR. Postoperatively, good wall thickening with good segmental motion and normal EF. No significant postop valvular changes. TRANSESOPHAGEAL ECHOCARDIOGRAM REPORT [id number] ISMAEL WEST TRANSINT:[id number] Voice Confirmation ID: [id number] DOCUMENT ID: [id number] at 1409 CC: [id number] DICTATION DATE: 02/16/20 1519 PAINT COATING MACHINE OPERATOR: 02/17/20 0717 ADM IN [facility] [address] [place] [address]
--- NOTE | 2020-02-18 14:51 | NUR ---
POTASSIUM LAB 3.3. DR. MÉNDEZ NOTIFIED. ORDERED 40MEQ IV KCL TO BE GIVEN OVER 2HRS.
--- NOTE | 2020-02-18 16:45 | NUR ---
MEAL TRAY DELIVERED AND SET UP.
--- NOTE | 2020-02-18 17:54 | NUR ---
ASSISTED UP TO BEDSIDE COMMODE. NO BM NOTED AT THIS TIME. PT REPORTED PASSING GAS. ASSISTED BACK TO BED. MORPHINE WAS GIVEN BEFORE TRANSFER. PULLED UP AND REPOSITIONED FOR COMFORT. CALL LIGHT IN REACH. WILLC CONTINUE TO MONITOR.
--- NOTE | 2020-02-18 17:59 | NUR ---
CALL DAMIEN ANSWERED. ASKED FOR HER GLASSES. GLASSES PLACED ON BEDSIDE TABLE WHERE PT COULD REACH. NO FURTHER NEEDS. WILL CONTINUE TO MONITOR.
--- NOTE | 2020-02-18 18:59 | NUR ---
HR IN [facility] UNCONTROLLED WITH RATE 102-120. DR. MÉNDEZ NOTIFIED. NO ORDERS RECEIVED AT THIS TIME.
--- NOTE | 2020-02-18 19:00 | NUR ---
SHIFT ASSESSMENT COMPLETED. PT CARE ASSUMED, MONITORS ON AND WORKING, VITALS STABLE, PT AWAKE AND ALERT, SEE FLOW SHEET FOR FURTHER DETAILS. WILL CONTINUE TO OBSERVE.
[2020-02-19] VITALS (23 sets, daily range): BP systolic 92–158; BP diastolic 52–79
--- NOTE | 2020-02-19 01:00 | NUR ---
PT COMPLAINS OF PAIN REGULARLY REQUEST PAIN MEDS. REPOSITIONING DOES NOT APPEAR TO HELP. PT AWAKE AND ALERT, CALL LIGHT WITHIN REACH, WILL CONTINUE TO OBSERVE.
--- NOTE | 2020-02-19 03:00 | NUR ---
PT TURNED AND REPOSITIONED FOR COMFORT, MONITORS ON AND WORKING, VITALS STABLE. SEE FLOW SHEET FOR FURTHER DETAILS. WILL CONTINUE TO OBSERVE.
[2020-02-19 07:22] LABS: ALBUMIN 2.2 g/dL (3.4-5.0); ANION GAP 12.6 mmol/L (8-16); BILIRUBIN - TOTAL 0.89 mg/dL (0.2-1.3); CALCIUM 7.6 mg/dL (8.5-10.1); CREATININE - SERUM 0.9 mg/dL (0.6-1.3); MAGNESIUM - SERUM 1.9 mg/dL (1.8-2.4); PHOSPHOROUS 1.8 mg/dL (2.5-4.9); POTASSIUM - SERUM 3.6 mmol/L (3.5-5.1); PROTEIN - SERUM 5.9 g/dL (6.4-8.2)
[2020-02-19 07:46] LABS: BASOPHILS 0.2 % (0-2); EOSINOPHILS 5.9 % (0-7); HEMATOCRIT 27.6 % (36.0-48.0); HEMOGLOBIN 8.5 g/dL (12-16); IMMATURE GRANULOCYTES 0.4 % (0-5); LYMPHOCYTES 18.5 % (15-50); MCH 30.4 pg (26.0-34.0); MCHC 30.8 g/dL (31.0-37.0); MCV 98.6 fL (80.0-100.0); MEAN PLATELET VOLUME 10.3 fL (7.4-10.4); WBC 5.5 10x3/uL (4.8-10.8)
[2020-02-19 07:51] LABS: PLATELET COUNT 150 10x3/uL (130-400)
--- NOTE | 2020-02-19 10:56 | NUR ---
Nutrition Follow-up: POD 3 CABG. Tolerated solids this AM; ate <50% of breakfast. Denies N/V. Likes Glucerna. Diet: Clear Liquid -> Diabetic Wt: 182# (02/18); 186.2# (02/17); 181.8# (02/16) -BM Labs noted: Glu 130, Ca 7.6, PO4 1.8, Alb 2.2 Meds noted: Oscal, Lasix, KDur, Protonix, Senokot, Colace, MagOx -Encourage PO intake and honor food preferences within diet restrictions. -+Glucerna with meals. -Monitor wt. -RD following.
--- NOTE | 2020-02-19 18:10 | MORECARE ---
CASE MANAGEMENT DISCHARGE SUMMARY PATIENT: ISMAEL WEST UNIT: [id number] ADM DATE: 02/16/20 AGE: 64 : 55 SEX: F [facility]OM[facility]ED: [facility] AUTHOR: BOB,DOC PHYSICIAN: REFERRING PHYSICIAN: JAY MÉNDEZ MD DATE OF SERVICE: 02/19/20 Discharge Plan Patient Name: ISMAEL WEST Facility: [facility]:[place] : 1955 Planned Disposition: Inpatient Rehab Anticipated Discharge Date: Discharge Date: Expected LOS: Initial Reviewer: [email or web address] Initial Review Date: 02/16/2020 Generated: 02/19/20 7:09 pm Comments DCP- Discharge Planning Updated by [id number]: Bibi Braxton on 02/19/20 5:[address] Patient Name: ISMAEL WEST Admission Status: Urgent Accout number: [id number] Admission Date: 02-16-2020 : 1955 Admission Diagnosis:ATHSCL HEART DISEASE OF [place] CORONARY ARTERY W/O ANG Attending: JAY MÉNDEZ Current LOS: 3 Anticipated DC Date: Planned Disposition: Inpatient Rehab Primary Insurance: [employer] ADV Discharge Planning Comments: CM met with patient to complete initial dc planning assessment. CM educated patient on the CM role and verbal consent given by patient to complete assessment. Patient lives at home alone where she is independent with her care. At discharge patient plans to return home and feels this is a safe discharge. CM discussed availability of home health, rehab services, and medical equipment. She will have family drive her home. Patient is wanting inpatient rehab before going home. KVNG signed Patient denied known discharge needs at this time. CM will continue to follow and will assist as needed with dc plans/needs. Finisher Card Tender: Bibi Braxton DCPIA - Discharge Planning Initial Assessment Updated by [email or web address]: Bibi Braxton on 02/19/20 6:04 pm * Is the patient Alert and Oriented? Yes * How many steps to enter\exit or inside your home? 8-10 * PCP [facility] * [facility] * Preadmission Environment Home with Family * ADLs Independent * Other Equipment ROLLATOR, BOOT * List name and contact numbers for known caregivers / representatives who currently or will assist patient after discharge: LISA RICHARDSON - [phone] * Verbal permission to speak to the caregivers and representatives has been obtained from the patient. Yes * Community resources currently utilized None * Additional services required to return to the preadmission environment? No * Can the patient safely return to the preadmission environment? Yes * Has this patient been hospitalized within the prior 30 days at any hospital? No Patient Name: ISMAEL WEST Page [id number] at 1810 All edits/amendments must be made on the electronic document DICTATION DATE: 02/19/201808 OPTICS ENGINEER: JONATHAN 02/19/201808 RPT#: [id number] DC DATE: STATUS: ADM IN [facility] [address] [place] [address] END OF REPORT
--- NOTE | 2020-02-19 19:00 | NUR ---
PT ASSESSMENT COMPLETED AT THIS TIME, NO CHANGES NOTED FROM NURSE REPORT, PT AAOX4 AND COMPLAINING OF BACK AND LEFT SIDE PAIN. PT WAS ADIVSED THAT SHE COULD HAVE SOME PRN PAIN MED AFTER THE NURSE CHECKED THE ORDERS. PT VERBALIZED UNDERSTANDING. NO DISTRESS NOTED, VSS, WILL MONITOR FOR CHANGES
--- NOTE | 2020-02-19 23:14 | NUR ---
PT ADVISED THAT SHE WAS HAVING TROUBLE BEING ABLE TO SLEPP AND FEELING A LITTLE ANIXOUS, PT ASKED IF SHE COULD HAVE ANOTHER PAIN PILL, PT WAS INFORMED THAT IT WAS NOT TIME YET BUT THAT SHE HAD AN ORDER FOR VALIUM AND SHE AGGREED TO TAKE THE THAT
[2020-02-20] VITALS (23 sets, daily range): BP systolic 94–155; BP diastolic 46–78
--- NOTE | 2020-02-20 01:16 | NUR ---
PT CALLED NURSE TO ROOM ASKING ABOUT PAIN MEDICINE, PT WAS INFORMED THAT SHE HAD JUST GOT PAIN MEDS ABOUT A HOUR AGO, PT BEGAN CRYING AND WAS CALMED DOWN, PT ADVISED THAT SHE WOULD TRY TO WAIT UNTIL TIME
--- NOTE | 2020-02-20 03:00 | NUR ---
PT REASSESSMENT COMPLETED A THIS TIME, PT AWAKE AND ASKING ABOUT WHEN SHE CAN HAVE ANOTHER PAIN PILL, PT WAS ADVISED THAT IT WOULD STILL BE ANOTHER HOUR, VSS, WILL MONITOR FOR CHANGES
--- NOTE | 2020-02-20 05:08 | NUR ---
PT RESTING WITH EYES CLOSED, RESP EVEN AND NON LABORED, VSS, WILL MONITOR FOR CHANGES
[2020-02-20 05:56] LABS: HEMATOCRIT 29.1 % (36.0-48.0); HEMOGLOBIN 9.1 g/dL (12-16); MCH 30.5 pg (26.0-34.0); MCHC 31.3 g/dL (31.0-37.0); MCV 97.7 fL (80.0-100.0); MEAN PLATELET VOLUME 9.9 fL (7.4-10.4); RBC 2.98 10x6/uL (4.00-5.40); WBC 4.7 10x3/uL (4.8-10.8)
[2020-02-20 06:17] LABS: ALBUMIN 2.4 g/dL (3.4-5.0); ANION GAP 11.3 mmol/L (8-16); BILIRUBIN - TOTAL 0.76 mg/dL (0.2-1.3); CALCIUM 8.5 mg/dL (8.5-10.1); CARBON DIOXIDE 26.4 mmol/L (21.0-32.0); CREATININE - SERUM 0.9 mg/dL (0.6-1.3); POTASSIUM - SERUM 3.7 mmol/L (3.5-5.1); PROTEIN - SERUM 6.4 g/dL (6.4-8.2)
[2020-02-20 06:25] LABS: PHOSPHOROUS 2.4 mg/dL (2.5-4.9)
--- NOTE | 2020-02-20 12:30 | NUR ---
DR. PATEL HERE. MIGNON DRAIN DC'D BY DR. PATEL. TPM WIRE INTACT. SITE DRESSED WITH 4X4 AND TEGADERM.
--- NOTE | 2020-02-20 19:00 | NUR ---
PT ASSESSMENT COMPLETED AT THIS TIME, NO CHANGES NOTED FROM NURSE REPORT, PT IS AAOX4 SITTING BED WATCHIG TV, PT REQUESTING PAIN MEDICATION AT THIS TIME, VSS, WILL MONITOR FOR CHANGES
--- NOTE | 2020-02-20 21:00 | NUR ---
PT ASSISTED UP TO BATHROOM WITH STAND BY ASSIST, PT VOIDED AND STATES THAT SHE HAD A SMALL BM, NO DISTRESS NOTED ,NO COMPLAINTS VOICED AT THSI TIME
--- NOTE | 2020-02-20 23:00 | NUR ---
PT REASSESSMENT COMPLETED AT THIS TIME, NO CHANGES NOTED FROM PREVIOUS EXAM, VSS, WILL MONITOR FOR CHANGES
[2020-02-21] VITALS (22 sets, daily range): BP systolic 92–148; BP diastolic 50–82
--- NOTE | 2020-02-21 01:00 | NUR ---
PT RESTING WITH EYES CLOSEDM RESP EVEN AND NON LABORED, VSS WILL MONITOR FOR CHANGES
--- NOTE | 2020-02-21 03:00 | NUR ---
PT REASSESMENT COMPELTED AT THIS TIME, NO CHANGES NOTED FROM PREVIOUS EXAM, VSS WILL MONITOR FOR CHANGES
--- NOTE | 2020-02-21 05:08 | NUR ---
PT WANTED SOME COFFEE AND SOMETHING FOR PAIN, PT WAS GIVEN COFFEE AND PRN PAIN MEDS AT THIS TIME, PT DENIES ANY OTHER NEEDS AT THIS TIME
[2020-02-21 05:33] LABS: HEMATOCRIT 30.8 % (36.0-48.0); HEMOGLOBIN 9.7 g/dL (12-16); MCH 30.4 pg (26.0-34.0); MCHC 31.5 g/dL (31.0-37.0); MCV 96.6 fL (80.0-100.0); RBC 3.19 10x6/uL (4.00-5.40); RDW 12.7 % (11.5-14.5); WBC 4.4 10x3/uL (4.8-10.8)
[2020-02-21 05:47] LABS: ALBUMIN 2.6 g/dL (3.4-5.0); BILIRUBIN - TOTAL 0.69 mg/dL (0.2-1.3); CALCIUM 8.8 mg/dL (8.5-10.1); CARBON DIOXIDE 24.7 mmol/L (21.0-32.0); CREATININE - SERUM 1.1 mg/dL (0.6-1.3); MAGNESIUM - SERUM 1.9 mg/dL (1.8-2.4); POTASSIUM - SERUM 3.7 mmol/L (3.5-5.1); PROTEIN - SERUM 6.4 g/dL (6.4-8.2)
[2020-02-21 05:48] LABS: PHOSPHOROUS 3.4 mg/dL (2.5-4.9)
--- NOTE | 2020-02-21 19:00 | NUR ---
PT ASSESSMENT COMPLETED AT THIS TIME, NO CHANGES NOTED FROM NURSE REPORT, PT AAOX4 SITING IN BEDSIDE CHAIR, PT ADVISED THAT HER CHEST WAS HURTING MORE THIS EVENING BUT THAT SHE HAD JUST TAKEN A PAIN PILL, NO OTHER CONCERNS VOICED, NO DISTRESS NOTED WILL MONITOR FOR CHANGES
--- NOTE | 2020-02-21 21:22 | NUR ---
PT WAS GIVEN 2100 MEDS AND PT STATES THAT SHE NEEDED SOMETHING FOR PAIN PRN PAIN MEDS GIVEN AT THIS TIME
--- NOTE | 2020-02-21 23:00 | NUR ---
PT REASSESSMENT COMPLETED AT THIS TIME, NO CHANGES NOTED FROM PREVIOUS EXAM, VSS, WILL MONITOR FOR CHANGES
[2020-02-22] VITALS (24 sets, daily range): BP systolic 94–154; BP diastolic 44–96
--- NOTE | 2020-02-22 01:24 | NUR ---
PY REQUESTING SOMETHING FOR PAIN, PRN PAIN MED GIVEN AT THIS TIME
--- NOTE | 2020-02-22 03:00 | NUR ---
PT REASSESSMENT COMPLETED AT THIS TIME, NO CHANGES FROM PREVIOUS EXAM, VSS, WILL MONITOR FOR CHANGES
--- NOTE | 2020-02-22 05:00 | NUR ---
PT AWAKE AND REQUESTING SOMETHING FOR PAIN, PT WAS ADVISED THAT IT WAS TO EARLY FOR A PAIN PILL, PT ASKED ABOUT SOME TORADOL, PT WAS GIVEN TORADOL PRN
[2020-02-22 05:54] LABS: HEMOGLOBIN 9.5 g/dL (12-16); MCH 30.2 pg (26.0-34.0); MCHC 31.7 g/dL (31.0-37.0); MCV 95.2 fL (80.0-100.0); MEAN PLATELET VOLUME 9.8 fL (7.4-10.4); RBC 3.15 10x6/uL (4.00-5.40); RDW 12.8 % (11.5-14.5); WBC 4.9 10x3/uL (4.8-10.8)
[2020-02-22 06:31] LABS: ALBUMIN 2.7 g/dL (3.4-5.0); ANION GAP 14.8 mmol/L (8-16); BILIRUBIN - TOTAL 0.59 mg/dL (0.2-1.3); CALCIUM 8.9 mg/dL (8.5-10.1); CARBON DIOXIDE 23.9 mmol/L (21.0-32.0); CREATININE - SERUM 1.2 mg/dL (0.6-1.3); POTASSIUM - SERUM 3.7 mmol/L (3.5-5.1); PROTEIN - SERUM 6.9 g/dL (6.4-8.2)
--- NOTE | 2020-02-22 08:41 | NUR ---
0700 PT RECIEVED UP IN CHAIR ALERT AND ORIENTED VSS SEE SHIFT ASSESSMENT FOR DETAILS, ASSISTED UP TO VOID AND BACK TO CHAIR 0800 ATE BREAKFAST AND TOLERATED WELL, ASSISTED BACK TO BED AND TPM WIRES DCD BY DR MÉNDEZ
--- NOTE | 2020-02-22 09:47 | NUR ---
Nutrition Follow-up: POD 6 CABG. C/o indigestion. Denies N/V. Drinking ~1 Glucerna per day; requesting to decrease Glucerna sent to BID. Diet: Diabetic, Glucerna TID PO intake: 25-50% Wt: 168.4# (02/21); 182# (02/18); 181.8# (02/16) Last BM: 02/20 Labs noted: Glu 133, Alb 2.7 Meds noted: MagOx, Lasix, Oscal, KDur, Protonix, Senokot, Colace -Encourage PO intake and honor food preferneces within diet restrictions. -Monitor wt. -RD following.
--- NOTE | 2020-02-22 11:17 | NUR ---
Rehab Prescreening Consult recieved and the chart has been reviewed. She is [employer] and will require a preauth. She has PT but will need an OT eval. Once it is completed all information will be submitted for their review. Joann Quintana RN Clinical Liaison, Rehab
--- NOTE | 2020-02-22 17:41 | NUR ---
1100 pt ambulated with therapy 1200 ate 75% lunch 1500 ambulated with therapy 1700 dinner tray served
--- NOTE | 2020-02-22 18:17 | MORECARE ---
CASE MANAGEMENT DISCHARGE SUMMARY PATIENT: ISMAEL WEST UNIT: [id number] ADM DATE: 02/16/20 AGE: 64 : 55 SEX: F ROOM/BED: [facility] AUTHOR: BOB,DOC PHYSICIAN: REFERRING PHYSICIAN: JAY MÉNDEZ MD DATE OF SERVICE: 02/22/20 Discharge Plan Patient Name: ISMAEL WEST Facility: [facility]:[place] : 1955 Planned Disposition: Inpatient Rehab Anticipated Discharge Date: Discharge Date: Expected LOS: Initial Reviewer: [email or web address] Initial Review Date: 02/16/2020 Generated: 02/22/20 7:16 pm Comments DCP- Discharge Planning Updated by [id number]: Bibi Braxton on 02/22/20 5:[address] CM spoke with Joann at [facility] Rehab and patient will need occupational therapy eval. Patient's insurance requires PA before they can admit. CM will continue to follow and assist as needed with discharge planning / needs. DCP- Discharge Planning Updated by [id number]: Bibi Braxton on 02/19/20 5:[address] Patient Name: ISMAEL WEST Admission Status: Urgent Accout number: [id number] Admission Date: 02-16-2020 : 1955 Admission Diagnosis:ATHSCL HEART DISEASE OF [place] CORONARY ARTERY W/O ANG Attending: JAY MÉNDEZ Current LOS: 3 Anticipated DC Date: Planned Disposition: Inpatient Rehab Primary Insurance: [employer] ADV Discharge Planning Comments: CM met with patient to complete initial dc planning assessment. CM educated patient on the CM role and verbal consent given by patient to complete assessment. Patient lives at home alone where she is independent with her care. At discharge patient plans to return home and feels this is a safe discharge. CM discussed availability of home health, rehab services, and medical equipment. She will have family drive her home. Patient is wanting inpatient rehab before going home. KVNG signed Patient denied known discharge needs at this time. CM will continue to follow and will assist as needed with dc plans/needs. Payroll Associate: Bibi Braxton DCPIA - Discharge Planning Initial Assessment Updated by [id number]: Bibi Braxton on 02/19/20 6:04 pm * Is the patient Alert and Oriented? Yes * How many steps to enter\exit or inside your home? 8-10 * PCP [facility] * Pharmacy [facility] * Preadmission Environment Home with Family * ADLs Independent * Other Equipment ROLLATOR, BOOT * List name and contact numbers for known caregivers / representatives who currently or will assist patient after discharge: LISA RICHARDSON - [phone] * Verbal permission to speak to the caregivers and representatives has been obtained from the patient. Yes * Community resources currently utilized None * Additional services required to return to the preadmission environment? No * Can the patient safely return to the preadmission environment? Yes * Has this patient been hospitalized within the prior 30 days at any hospital? No Coverage Notice Reviewer: [id number] - Bibi Braxton Notice Issued Date-Time: 02/19/2020 14:30 Notice Type: Patient Choice Letter Notice Delivered To: Patient Relationship to Patient: Self Hydrodynamics Teacher Name: Delivery Method: HAND - Hand Delivered Charlene Days: Prior Verbal Notification: Recipient Understood Notice: Yes Recipient Signature: Yes Med Rec Note Co-signed by Attending: Coverage Notice Comment: inpatient rehab [facility] Last DP export: 02/19/20 5:10 pm Patient Name: ISMAEL WEST Page 14370 at 1817 All edits/amendments must be made on the electronic document DICTATION DATE: 02/22/201815 SPECIAL EDUCATION SCIENCE TEACHER: JONATHAN 02/22/201815 RPT#: [id number] DC DATE: STATUS: ADM IN [facility] [address] [place] [address] END OF REPORT
--- NOTE | 2020-02-22 19:00 | NUR ---
PT ASSEMSSMENT COMPLETED AT THIS TIME, NO CHANGES NOTED FROM NURSE REPORT, PT AAXO4 SITTING IN THE BEDSIDE CHAIR, NO DISTRESS NOTED, VSS WILL MONITOR FOR CHANGES
--- NOTE | 2020-02-22 21:10 | NUR ---
PT GIVEN MEDS AT THIS TIME, PT REQUESTED HER VALIUM AND A PAIN PILL, PRN MEDS GIVEN AT THIS TIME
--- NOTE | 2020-02-22 23:00 | NUR ---
PT REASSESSMENT COMPLETED AT THIS TIME, NO CHANGES NOTED FROM PREVIOUS EXAM, VSS, WILL MONITOR FOR CHANGES
[2020-02-23] VITALS (23 sets, daily range): BP systolic 91–136; BP diastolic 55–85
--- NOTE | 2020-02-23 00:50 | NUR ---
PT ASSISSTED UP TO THE BATHROOM, PT C/O PAIN ALL OVER AND ASKING ABOUT PAIN MEDICINE, PT WAS INFROMED THAT IT WAS NOTE TIME FOR ANOTHER DOSE AT THIS TIME
--- NOTE | 2020-02-23 03:10 | NUR ---
PT REQUESTING SOME MORE ICE WATER, WHILE GIVING WATER PT C/O PAIN ALL OVER AND MADE COMMENT ABOUT HOW SHE TAKES PAIN MEDS AT HOME AND DOENS HURT, PT WAS INFORMED THAT IT WAS NOT TIME ANY ADDITIONAL PAIN MEDS AT THIS TIME
--- NOTE | 2020-02-23 05:01 | NUR ---
PT AWAKE IN THE BED, PT ASSISTED UP TO THE BATHROOM, VSS, WILL MONITOR FOR CHANGES
[2020-02-23 05:56] LABS: HEMATOCRIT 29.6 % (36.0-48.0); HEMOGLOBIN 9.2 g/dL (12-16); MCH 30.1 pg (26.0-34.0); MCHC 31.1 g/dL (31.0-37.0); MCV 96.7 fL (80.0-100.0); MEAN PLATELET VOLUME 9.6 fL (7.4-10.4); RBC 3.06 10x6/uL (4.00-5.40); RDW 12.8 % (11.5-14.5); WBC 5.3 10x3/uL (4.8-10.8)
[2020-02-23 06:33] LABS: ALBUMIN 2.6 g/dL (3.4-5.0); ANION GAP 10.8 mmol/L (8-16); BILIRUBIN - TOTAL 0.41 mg/dL (0.2-1.3); CALCIUM 9.5 mg/dL (8.5-10.1); CARBON DIOXIDE 24.4 mmol/L (21.0-32.0); CREATININE - SERUM 1.1 mg/dL (0.6-1.3); POTASSIUM - SERUM 4.2 mmol/L (3.5-5.1); PROTEIN - SERUM 6.9 g/dL (6.4-8.2)
--- NOTE | 2020-02-23 08:20 | NUR ---
0700 PT RECIEVED IN BED ALERT AND ORIENTED VSS DENIES ALL NEEDS OTHER THAN NOT LIKING PAIN MEDICATION. 0800 DR MÉNDEZ NOTIFIED THAT PT REQUESTING MORE PAIN MEDICATION, NO NEW ORDERS.
--- NOTE | 2020-02-23 12:29 | MORECARE ---
CASE MANAGEMENT DISCHARGE SUMMARY PATIENT: ISMAEL WEST UNIT: [id number] ADM DATE: 02/16/20 AGE: 64 : 55 SEX: F [facility] AUTHOR: BOB,DOC PHYSICIAN: REFERRING PHYSICIAN: JAY MÉNDEZ MD DATE OF SERVICE: 02/23/20 Discharge Plan Patient Name: ISMAEL WEST Facility: [facility]:[place] : 1955 Planned Disposition: Inpatient Rehab Anticipated Discharge Date: Discharge Date: Expected LOS: Initial Reviewer: [email or web address] Initial Review Date: 02/16/2020 Generated: 02/23/20 1:28 pm Comments DCP- Discharge Planning Updated by [email or web address]: Jessica Montelongo on 02/23/20 11:[address] CM contacted [facility], regarding progress of Rehab evaluation. Transfer pending [facility] authorization. DCP- Discharge Planning Updated by [email or web address]: Bibi Braxton on 02/22/20 5:[address] CM spoke with Joann at [facility] and patient will need occupational therapy eval. Patient's insurance requires PA before they can admit. CM will continue to follow and assist as needed with discharge planning / needs. DCP- Discharge Planning Updated by [id number]: Bibi Braxton on 02/19/20 5:[address] Patient Name: ISMAEL WEST Admission Status: Urgent Accout number: [id number] Admission Date: 02-16-2020 : 1955 Admission Diagnosis:ATHSCL HEART DISEASE OF [place] CORONARY ARTERY W/O ANG Attending: JAY MÉNDEZ Current LOS: 3 Anticipated DC Date: Planned Disposition: Inpatient Rehab Primary Insurance: [employer] ADV Discharge Planning Comments: CM met with patient to complete initial dc planning assessment. CM educated patient on the CM role and verbal consent given by patient to complete assessment. Patient lives at home alone where she is independent with her care. At discharge patient plans to return home and feels this is a safe discharge. CM discussed availability of home health, rehab services, and medical equipment. She will have family drive her home. Patient is wanting inpatient rehab before going home. KVNG signed Patient denied known discharge needs at this time. CM will continue to follow and will assist as needed with dc plans/needs. Bundler Seasonal Greenery: Bibi Braxton DCPIA - Discharge Planning Initial Assessment Updated by [id number]: Bibi Braxton on 02/19/20 6:04 pm * Is the patient Alert and Oriented? Yes * How many steps to enter\exit or inside your home? 8-10 * PCP LAZO * Pharmacy [facility] * Preadmission Environment Home with Family * ADLs Independent * Other Equipment ROLLATOR, BOOT * List name and contact numbers for known caregivers / representatives who currently or will assist patient after discharge: LISA RICHARDSON - [phone] * Verbal permission to speak to the caregivers and representatives has been obtained from the patient. Yes * Community resources currently utilized None * Additional services required to return to the preadmission environment? No * Can the patient safely return to the preadmission environment? Yes * Has this patient been hospitalized within the prior 30 days at any hospital? No Coverage Notice Reviewer: [id number] - Bibi Braxton Notice Issued Date-Time: 02/19/2020 14:30 Notice Type: Patient Choice Letter Notice Delivered To: Patient Relationship to Patient: Self Triage Assistant Name: Delivery Method: HAND - Hand Delivered Charlene Days: Prior Verbal Notification: Recipient Understood Notice: Yes Recipient Signature: Yes Med Rec Note Co-signed by Attending: Coverage Notice Comment: inpatient rehab [facility] Last DP export: 02/22/20 5:17 pm Patient Name: ISMAEL WEST Page 17988 at 1229 All edits/amendments must be made on the electronic document DICTATION DATE: 02/23/20 1229 EXTRUDING DEPARTMENT SUPERVISOR: JONATHAN 02/23/20 1229 RPT#: [id number] DC DATE: STATUS: ADM IN [facility] [address] [place] [address] END OF REPORT
--- NOTE | 2020-02-23 12:32 | NUR ---
PT HELPED TO AMBULATE TO BED. COMPLETE LINEN CHANGE PROVIDED. ICE WATER GIVEN. FOOD DARRICK TAKEN 0% EATEN. MED GIVEN PER MAR PER PT REQUEST. WILL CONTINUE TO MONITOR.
--- NOTE | 2020-02-23 15:09 | NUR ---
OT NOTE: PT COMPLETED ADL MOB WITH CGA. PT COMPLETED SIT TO STAND WITH CGA/MIN A. PT COMPLETED TOILET HYGIENE WITH MIN A. [phone] THANK YOU,KJ CHRISTINA
--- NOTE | 2020-02-23 18:41 | NUR ---
1000 AMBULATED WITH THERAPY 1200 REFUSED LUNCH TRAY 1500 AMBULATED WITH THERAPY 1700 REFUSED DINNER TRAY
--- NOTE | 2020-02-23 19:00 | NUR ---
REPORT RECIEVED FROM THE OFF GOING RN. SEE ASSESSMENT IN THE PTS FLOW SHEET. PT REQUESTED TO LAY IN BED. SHE WAS ASSISTED BACK INTO BED. PT DENIES PAIN AT THIS TIME. VSS CALL LIGHT IN REACH. WILL CONT POC.
--- NOTE | 2020-02-23 21:00 | NUR ---
VSS. PT RESTING WITH HER EYES CLOSED. CALL LIGHT IN REACH. WILL CONT POC.
--- NOTE | 2020-02-23 23:21 | NUR ---
PT ASSISTED OOB AND INTO THE BATHROOM. NORMAL STEADY GAIT WITH THE ASSISTANCE OF A WALKER. PT VOIDED AND THEN ASSISTED BACK INTO BED. PT TOLERATED WELL. CALL LIGHT IN REACH. RENATE CONT POC.
[2020-02-24] VITALS (17 sets, daily range): BP systolic 99–154; BP diastolic 47–69
--- NOTE | 2020-02-24 01:00 | NUR ---
PT REQUEST ICECREAM. IT WAS PROVIDED. PT DENIES ANY OTHER NEEDS AT THIS TIME. CALL LIGHT IN REACH. WILL CONT POC.
--- NOTE | 2020-02-24 03:00 | NUR ---
REASSEMENT COMPLETED. SEE FLOW SHEET. CALL LIGHT IN REACH. WILL CONT POC.
--- NOTE | 2020-02-24 06:30 | NUR ---
OFFERED A BATH AND THE PT STATED THAT SHE WILL TAKE A SHOWER WHENEVER SHE GETS HOME.
--- NOTE | 2020-02-24 08:35 | NUR ---
0700 PT RECIEVED UP IN CHAIR ALERT AND ORIENTED VSS DENIES PAIN AND ALL NEEDS, LFA PIV SL, CALL LIGHT WITHIN REACH 0800 AMBULATED WITH THERAPY 0830 ATE 50% BREAKFAST
--- NOTE | 2020-02-24 10:26 | NUR ---
Nutrition Follow-up: POD 8 CABG. Noted pt refused lunch and dinner yesterday; pt states that it's because she is depressed. Ate ~50% of breakfast this AM. States she drinks at least 1 Glucerna/day. C/o diarrhea from stool softeners. Helped pt fill out today's menu. Rehab placement pending. Diet: Diabetic, Glucerna BID Wt: 170.8# (02/23); 168.4# (02/21); 181.8# (02/16) Labs reviewed Meds noted: MagOx, Oscal, KDur, Protonix, Senokot, Colace -Encourage PO intake and honor food preferences within diet restrictions. -Monitor wt. -RD following.
[2020-02-24] MEDS ORDERED: AMIODARONE HCL200 MG PO (12:52)
[2020-02-24] MEDS ORDERED: COREG6.25 MG PO (12:53)
[2020-02-24] MEDS ORDERED: ASPIRIN EC81 M1 PO (12:54)
[2020-02-24] MEDS ORDERED: COLACE100 MG PO (12:58)
[2020-02-24] MEDS ORDERED: PERCOCET 5-3251 TAB PO (12:59)
[2020-02-24] MEDS ORDERED: VALIUM5 MG PO (12:59)
--- NOTE | 2020-02-24 14:34 | NUR ---
1200 ATE 50% LUNCH ABLE TO REPOSITION SELF IN CHAIR, CALL LIGHT WITHIN REACH, VSS, PER DR MÉNDEZ AND CASE MANAGEMENT AWAITING REHAB, REHAB AWAITING INSURANCE APPROVAL, PT UPDATED SEVERAL TIMES THROUGHOUT DAY
--- NOTE | 2020-02-24 14:44 | NUR ---
OT NOTE: PT COMPLETED ADL MOB WITH CGA. PT COMPLETED TOILETING TASKS WITH SBA. PT COMPLETED SIT TO STAND WITH CGA. PT DOING WELL TODAY. [phone] THANK YOU,KJ CHRISTINA
--- NOTE | 2020-02-24 14:50 | NUR ---
OT NOTE: PT UP IN CHAIR. AMB TO BATHROOM WITH USE OF WALKER AND SBA. TOILET HYGIENE WITH SBA. AMB INTO HALLWAY APPROX [phone] FT WITH WALKER, CGA, AND 1 REST BREAK. TRANSFERS TO CHAIR WITH CGA. ABLE TO DENISA BRACE AND SHOES WITH SET UP. NANCY LIMA, OTR/L
--- NOTE | 2020-02-24 18:25 | NUR ---
PT ATE 50% DINNER, REVIEWED DC INSTRUCTIONS WITH MYSELF AND DR LANDAVERDE NURSE DENIES ALL QUESTIONS, ALL INCISION SITES OPEN TO AIR, ASSISTED TO VEHICLE WITH SON AT 1810
--- NOTE | 2020-02-24 18:35 | MORECARE ---
CASE MANAGEMENT DISCHARGE SUMMARY PATIENT: ISMAEL WEST UNIT: [id number] ADM DATE: 02/16/20 AGE: 64 : 55 SEX: F [facility] AUTHOR: BOB,DOC PHYSICIAN: REFERRING PHYSICIAN: JAY MÉNDEZ MD DATE OF SERVICE: 02/24/20 Discharge Plan Patient Name: ISMAEL WEST Facility: [facility]:[place] : 1955 Planned Disposition: Inpatient Rehab Anticipated Discharge Date: Discharge Date: 02/24/2020 Expected LOS: Initial Reviewer: [id number] Initial Review Date: 02/16/2020 Generated: 02/24/20 7:34 pm Comments DCP- Discharge Planning Updated by [id number]: Bibi Braxton on 02/24/20 5:[address] CM SPOKE WITH JOANN MULTIPLE TIMES TODAY IN REGARDS AUTH PENDING FOR INPATIENT REHAB. JOANN STATED THAT THEY HAVE SPOKEN TO [facility] MULTIPLE TIMES TODAY AND STILL DON'T HAVE AN AUTH. CM CALLED HEATHER WITH DR. MÉNDEZ. DCP- Discharge Planning Updated by [id number]: Jessica Montelongo on 02/23/20 11:[address] CM contacted [facility], regarding progress of Rehab evaluation. Transfer pending [facility] authorization. DCP- Discharge Planning Updated by [id number]: Bibi Braxton on 02/22/20 5:[address] CM spoke with Joann at [facility] and patient will need occupational therapy eval. Patient's insurance requires PA before they can admit. CM will continue to follow and assist as needed with discharge planning / needs. DCP- Discharge Planning Updated by [id number]: Bibi Braxton on 02/19/20 5:[address] Patient Name: ISMAEL WEST Admission Status: Urgent Accout number: [id number] Admission Date: 02-16-2020 : 1955 Admission Diagnosis:ATHSCL HEART DISEASE OF [place] CORONARY ARTERY W/O ANG Attending: JAY MÉNDEZ Current LOS: 3 Anticipated DC Date: Planned Disposition: Inpatient Rehab Primary Insurance: [employer] MEDICARE ADV Discharge Planning Comments: CM met with patient to complete initial dc planning assessment. CM educated patient on the CM role and verbal consent given by patient to complete assessment. Patient lives at home alone where she is independent with her care. At discharge patient plans to return home and feels this is a safe discharge. CM discussed availability of home health, rehab services, and medical equipment. She will have family drive her home. Patient is wanting inpatient rehab before going home. KVNG signed Patient denied known discharge needs at this time. CM will continue to follow and will assist as needed with dc plans/needs. Winder Contort Operator: Bibi Braxton DCPIA - Discharge Planning Initial Assessment Updated by [id number]: Bibi Braxton on 02/19/20 6:04 pm * Is the patient Alert and Oriented? Yes * How many steps to enter\exit or inside your home? 8-10 * PCP [facility] * Pharmacy [facility] * Preadmission Environment Home with Family * ADLs Independent * Other Equipment ROLLATOR, BOOT * List name and contact numbers for known caregivers / representatives who currently or will assist patient after discharge: LISA RICHARDSON [phone] * Verbal permission to speak to the caregivers and representatives has been obtained from the patient. Yes * Community resources currently utilized None * Additional services required to return to the preadmission environment? No * Can the patient safely return to the preadmission environment? Yes * Has this patient been hospitalized within the prior 30 days at any hospital? No Coverage Notice Reviewer: [id number] - Bibi Braxton Notice Issued Date-Time: 02/19/2020 14:30 Notice Type: Patient Choice Letter Notice Delivered To: Patient Relationship to Patient: Self Customs Import Specialist Name: Delivery Method: HAND - Hand Delivered Charlene Days: Prior Verbal Notification: Recipient Understood Notice: Yes Recipient Signature: Yes Med Rec Note Co-signed by Attending: Coverage Notice Comment: inpatient rehab [facility] Last DP export: 02/23/20 11:29 am Patient Name: ISMAEL WEST Page 56800 at 1835 All edits/amendments must be made on the electronic document DICTATION DATE: 02/24/201833 ELEMENTARY EDUCATION TUTOR: JONATHAN 02/24/201833 RPT#: [id number] DC DATE:02/24/20 STATUS: DIS IN [facility] [address] [place] [address] END OF REPORT
--- NOTE | 2020-02-24 18:42 | MORECARE ---
CASE MANAGEMENT DISCHARGE SUMMARY PATIENT: ISMAEL WEST UNIT: [id number] ADM DATE: 02/16/20 AGE: 64 : 55 SEX: F [facility] AUTHOR: BOB,DOC PHYSICIAN: REFERRING PHYSICIAN: JAY MÉNDEZ MD DATE OF SERVICE: 02/24/20 Discharge Plan Patient Name: ISMAEL WEST Facility: [facility]:[place] : 1955 Planned Disposition: Inpatient Rehab Anticipated Discharge Date: Discharge Date: 02/24/2020 Expected LOS: Initial Reviewer: [email or web address] Initial Review Date: 02/16/2020 Generated: 02/24/20 7:41 pm Comments DCP- Discharge Planning Updated by [id number]: Bibi Braxton on 02/24/20 5:[address] Patient Name: ISMAEL WEST Encounter No: [id number] : 1955 Primary Insurance: [employer] MEDICARE ADV Anticipated DC Date: Planned Disposition: HOME External Planned Provider: : NO HOME HEALTH AT THIS TIME DCP follow-up note: Patient and family in agreement with discharge plan. No changes to plan. Case management will follow and assist as needed. D/C IMM SIGNED PATIENT WANTED TO WAIT TO SEE IF SHE NEEDS HOME HEALTH OR NOT SHE WILL CONTACT CM IF NEEDED. Bibi Braxton DCP- Discharge Planning Updated by [id number]: Bibi Braxton on 02/24/20 5:[address] CM SPOKE WITH JOANN MULTIPLE TIMES TODAY IN REGARDS AUTH PENDING FOR INPATIENT REHAB. JOANN STATED THAT THEY HAVE SPOKEN TO [facility] MULTIPLE TIMES TODAY AND STILL DON'T HAVE AN AUTH. CM CALLED HEATHER WITH DR. MÉNDEZ. DCP- Discharge Planning Updated by [email or web address]: Jessica Montelongo on 02/23/20 11:[address] CM contacted [facility], regarding progress of Rehab evaluation. Transfer pending [facility] authorization. DCP- Discharge Planning Updated by [id number]: Bibi Braxton on 02/22/20 5:[address] CM spoke with Joann at [facility] and patient will need occupational therapy eval. Patient's insurance requires PA before they can admit. CM will continue to follow and assist as needed with discharge planning / needs. DCP- Discharge Planning Updated by [id number]: Bibi Braxton on 02/19/20 5:[address] Patient Name: ISMAEL WEST Admission Status: Urgent Accout number: [id number] Admission Date: 02-16-2020 : 1955 Admission Diagnosis:ATHSCL HEART DISEASE OF [place] CORONARY ARTERY W/O ANG Attending: JAY MÉNDEZ Current LOS: 3 Anticipated DC Date: Planned Disposition: Inpatient Rehab Primary Insurance: [employer]IC[employer] ADV Discharge Planning Comments: CM met with patient to complete initial dc planning assessment. CM educated patient on the CM role and verbal consent given by patient to complete assessment. Patient lives at home alone where she is independent with her care. At discharge patient plans to return home and feels this is a safe discharge. CM discussed availability of home health, rehab services, and medical equipment. She will have family drive her home. Patient is wanting inpatient rehab before going home. KVNG signed Patient denied known discharge needs at this time. CM will continue to follow and will assist as needed with dc plans/needs. Steel Floor Pan Placing Supervisor: Bibi Braxton DCPIA - Discharge Planning Initial Assessment Updated by [id number]: Bibi Braxton on 02/19/20 6:04 pm * Is the patient Alert and Oriented? Yes * How many steps to enter\exit or inside your home? 8-10 * PCP [facility] * Pharmacy [facility] * Preadmission Environment Home with Family * ADLs Independent * Other Equipment ROLLATOR, BOOT * List name and contact numbers for known caregivers / representatives who currently or will assist patient after discharge: LISA PATRICK [facility] - [phone] * Verbal permission to speak to the caregivers and representatives has been obtained from the patient. Yes * Community resources currently utilized None * Additional services required to return to the preadmission environment? No * Can the patient safely return to the preadmission environment? Yes * Has this patient been hospitalized within the prior 30 days at any hospital? No Coverage Notice Reviewer: [id number] - Bibi Braxton Notice Issued Date-Time: 02/19/2020 14:30 Notice Type: Patient Choice Letter Notice Delivered To: Patient Relationship to Patient: Self Technology Applications Engineer Name: Delivery Method: HAND - Hand Delivered Charlene Days: Prior Verbal Notification: Recipient Understood Notice: Yes Recipient Signature: Yes Med Rec Note Co-signed by Attending: Coverage Notice Comment: inpatient rehab [facility] Reviewer: [id number] Wanda Braxton Notice Issued Date-Time: 02/24/2020 17:15 Notice Type: IM Discharge Notice Notice Delivered To: Patient Relationship to Patient: Self Technology Applications Engineer Name: Delivery Method: HAND - Hand Delivered Charlene Days: Prior Verbal Notification: Recipient Understood Notice: Yes Recipient Signature: Yes Med Rec Note Co-signed by Attending: Coverage Notice Comment: Last DP export: 02/24/20 5:35 pm Patient Name: ISMAEL WEST Page 64552 at 1842 All edits/amendments must be made on the electronic document DICTATION DATE: 02/24/201840 HEAD OF PARTNER DEVELOPMENT: JONATHAN 02/24/201840 RPT#: [id number] DC DATE:02/24/20 STATUS: DIS IN [facility] [address] [place] [address] END OF REPORT
== END 2020-02-24 18:10 | disposition home or self-care (01) | DRG 235 ==
LOC: D.SDCHOLD 02-12 12:00 → D.CVICU 02-16 05:53 → D.SDCHOLD 02-16 05:53 → D.CVICU 02-16 12:26
PROVIDERS: ADMIT Thoracic Surgery (Cardiothoracic Vascular Surgery); ATTEND Thoracic Surgery (Cardiothoracic Vascular Surgery)
PROC: 021209W Bypass Coronary Artery, Three Arteries from Aorta with Autologous Venous Tissue, Open Approach (ICD-10-PCS; 2020-02-16)
PROC: 06BP4ZZ Excision of Right Saphenous Vein, Percutaneous Endoscopic Approach (ICD-10-PCS; 2020-02-16)
PROC: 5A1221Z Performance of Cardiac Output, Continuous (ICD-10-PCS; 2020-02-16)
PROC: B245ZZ4 Ultrasonography of Left Heart, Transesophageal (ICD-10-PCS; 2020-02-16)
PROC: 02100Z9 Bypass Coronary Artery, One Artery from Left Internal Mammary, Open Approach (ICD-10-PCS; principal; 2020-02-16 07:30)
DX: I25.10 Atherosclerotic heart disease of native coronary artery without angina pectoris (principal); J95.821 Acute postprocedural respiratory failure; J98.11 Atelectasis; D62 Acute posthemorrhagic anemia; Y83.9 Surgical procedure, unspecified as the cause of abnormal reaction of the patient, or of later complication, without mention of misadventure at the time of the procedure; J44.9 Chronic obstructive pulmonary disease, unspecified; E78.1 Pure hyperglyceridemia; D50.9 Iron deficiency anemia, unspecified; K21.9 Gastro-esophageal reflux disease without esophagitis; E11.40 Type 2 diabetes mellitus with diabetic neuropathy, unspecified; F41.9 Anxiety disorder, unspecified; E78.5 Hyperlipidemia, unspecified; I11.0 Hypertensive heart disease with heart failure; I50.9 Heart failure, unspecified

== ENCOUNTER → 2020-03-16 10:38 | Outpatient (CLI) | payer MEDICARE, MEDICAID ==
[2020-02-17 10:18] VITALS: BMI 28.5
[~2020-03-16 10:38] MED LIST changes: +AMIODARONE HCL200 MG PO; +ASPIRIN EC81 M1 PO; +COLACE100 MG PO; +COREG6.25 MG PO; +ESTRACE1 MG PO; +PERCOCET 5-3251 TAB PO
[2020-03-16 11:08] LABS: BASOPHILS 0.2 % (0-2); EOSINOPHILS 9.4 % (0-7); HEMATOCRIT 33.3 % (36.0-48.0); HEMOGLOBIN 10.1 g/dL (12-16); IMMATURE GRANULOCYTES 0.2 % (0-5); MCH 28.4 pg (26.0-34.0); MCHC 30.3 g/dL (31.0-37.0); MCV 93.5 fL (80.0-100.0); MEAN PLATELET VOLUME 9.7 fL (7.4-10.4); MONOCYTES 8.8 % (2-11); NEUTROPHILS 50.4 % (40-80); PLATELET COUNT 272 10x3/uL (130-400); RBC 3.56 10x6/uL (4.00-5.40); RDW 13.2 % (11.5-14.5); WBC 5.1 10x3/uL (4.8-10.8)
[2020-03-16 11:23] LABS: ALBUMIN 3.3 g/dL (3.4-5.0); ANION GAP 12.8 mmol/L (8-16); BILIRUBIN - TOTAL 0.42 mg/dL (0.2-1.3); CALCIUM 9.3 mg/dL (8.5-10.1); CARBON DIOXIDE 24.7 mmol/L (21.0-32.0); CREATININE - SERUM 1.2 mg/dL (0.6-1.3); POTASSIUM - SERUM 4.5 mmol/L (3.5-5.1); PROTEIN - SERUM 7.7 g/dL (6.4-8.2)
== END | disposition home or self-care (01) ==
LOC: D.LAB 10:38
PROVIDERS: ATTEND Thoracic Surgery (Cardiothoracic Vascular Surgery)
DX: Z95.1 Presence of aortocoronary bypass graft (principal)

== ENCOUNTER 2021-03-09 07:30 | Day surgery (SDC) | payer MEDICARE, MEDICAID ==
[2021-03-06 13:03] LABS: BASOPHILS 0.8 % (0-2); EOSINOPHILS 2.1 % (0-7); HEMATOCRIT 34.2 % (36.0-48.0); LYMPHOCYTES 27.6 % (15-50); MCH 27.5 pg (26.0-34.0); MCHC 32.3 g/dL (31.0-37.0); MCV 85.2 fL (80.0-100.0); MEAN PLATELET VOLUME 7.9 fL (7.4-10.4); MONOCYTES 8.9 % (2-11); NEUTROPHILS 60.6 % (40-80); RBC 4.01 10x6/uL (4.00-5.40); RDW 14.7 % (11.5-14.5)
[2021-03-06 13:18] LABS: CALCIUM 9.4 mg/dL (8.5-10.1); CARBON DIOXIDE 25.2 mmol/L (21.0-32.0); CREATININE - SERUM 1.5 mg/dL (0.6-1.3); POTASSIUM - SERUM 4.2 mmol/L (3.5-5.1)
[2021-03-06 13:19] LABS: PLATELET COUNT 280 10x3/uL (130-400)
[~2021-03-09] VITALS: Ht 167.6 cm; Wt 80.3 kg
[~2021-03-09 07:30] MED LIST changes: +AVAPRO300 MG PO; +DOXYCYCLINE HY100 M2 PO; +FEXOFENADINE HC60 MG PO; +HYDROCODON-ACE1 EA10 PO; +LASIX20 MG PO; +MEGACE40 MG PO; +ULTRAM50 MG PO; +XARELTO20 MG PO
[2021-03-09] MEDS ORDERED: PACERONE200 MG PO (08:38)
[2021-03-09] MEDS ORDERED: CHLORZOXAZONE PO (08:46)
[2021-03-09] MEDS ORDERED: ULTRAM50 MG PO (08:46)
[2021-03-09] MEDS ORDERED: MUCINEX DM ER1 EAC1 PO (08:48)
[2021-03-09] MEDS ORDERED: CLONIDINE HCL0.1 MG PO (08:48)
[2021-03-09 08:50] VITALS: BP 119/66; Ht 167.6 cm; Wt 80.3 kg
--- NOTE | 2021-03-09 12:55 | NUR ---
IV DC'D VIA SHANICE, CATHETER INTACT. PT'S SISTER HELPING HER TO DRESS. PT WENT TO BATHROOM AND VOIDED 1309 DC TEACHING COMPLETE TO PT AND SISTER. ACKNOWLEDGED UNDERSTANDING 1320 PT DC'S VIA WC BY NURSE SHANICE TO POV WITH ALL BELONGINGS AND DC PACKET. PT'S SISTER DRIVING.
--- NOTE | 2021-03-16 17:12 | OP ---
PATIENT NAME: ISMAEL WEST MEDICAL RECORD: [id number] :55 LOCATION:D.OPS ADMISSION DATE: SURGEON: SANGEETHA JARVIS DO DATE OF OPERATION: 03/09/2021 PREOPERATIVE DIAGNOSIS: Postmenopausal bleeding, polyp. POSTOPERATIVE DIAGNOSIS: Postmenopausal bleeding. PRIMARY SURGEON: Sangeetha Jarvis DO ANESTHESIA: LMA. PROCEDURE: Hysteroscopy and D&C using Aveta system. FINDINGS: A 6-cm uterus. Bilateral ostia within normal limits. Fluid deficit 60 cc. On visualization, small indentation from dilator noted at fundus, but on exploration with camera, no perforation noted. Small amount of tissue on D&C. SPECIMEN: Endometrial curetting. ESTIMATED BLOOD LOSS: 10 cc. FLUIDS: 600 cc. Risks of surgery including bleeding, pain, infection, damage to surrounding structures including bladder, bowel, neurovascular structures, and perforation as well as VTE and risk of reoperation reviewed with the patient. The patient expressed understanding and desired to proceed with procedure. Consent signed in the office. All questions answered preoperatively. DESCRIPTION OF PROCEDURE: The patient was taken to the operating room where anesthesia was administered and found to be adequate. She was prepped and draped in normal sterile fashion in dorsal lithotomy position. Speculum was placed in the vagina and tenaculum used to grasp the anterior lip of the cervix. Cervix was dilated with Hegar dilators to accommodate Aveta hysteroscope system. On placing camera into the uterine cavity, indentation noted at fundus, explored with the camera. Noted to be into myometrium and no complete perforation noted, because no bowel, active bleeding, visualization of abdominal cavity noted. Rest of findings as above. No polyp noted within the endometrial cavity at that time as well. Minimal tissue noted, so camera removed and cervix dilated to accommodate a small sharp curette. The uterus was curetted in a clockwise fashion until gritty feeling was noted. Specimen sent to pathology and instrument removed. Tenaculum removed. Some bleeding noted and silver nitrate used to assure hemostasis. Instruments were removed. All lap, needle and instrument counts were correct times 2. The patient was awakened and taken to recovery room in stable condition. TRANSINT:[id number] Voice Confirmation ID: [id number] DOCUMENT ID: [id number] OPERATIVE REPORT [id number] ISMAEL WEST SANGEETHA JARVIS DO at 1712 CC: [id number] DICTATION DATE: 03/15/212133 INSTALLER HELPER: 03/16/21 0316 [facility] 03/09/21 [place] [address] [place] [address]
== END 2021-03-09 13:20 | disposition home or self-care (01) ==
LOC: D.OPS 07:30
PROVIDERS: Anesthesiology; ATTEND Obstetrics & Gynecology
DX: N95.0 Postmenopausal bleeding (principal); I10 Essential (primary) hypertension; I25.10 Atherosclerotic heart disease of native coronary artery without angina pectoris

== ENCOUNTER → 2021-04-20 15:47 | Outpatient (CLI) | payer MEDICARE, MEDICAID ==
[2021-03-09 08:50] VITALS: BMI 28.6
[~2021-04-20 15:47] MED LIST changes: +CHLORZOXAZONE PO; +CLEOCIN HCL150 MG PO; +CLONIDINE HCL0.1 MG PO; +FLORAJEN DIGES1 EACH PO; +MUCINEX DM ER1 EAC1 PO; +MULTAQ400 MG PO; +PACERONE200 MG PO; +PAROXETINE HCL10 MG PO
== END | disposition home or self-care (01) ==
LOC: D.LABREF 15:47
PROVIDERS: ATTEND Podiatrist Foot & Ankle Surgery
DX: L03.116 Cellulitis of left lower limb (principal)

== ENCOUNTER 2021-04-22 18:47 | Inpatient (IN) | payer MEDICARE, MEDICAID ==
[~2021-04-22] VITALS: Ht 167.6 cm; Wt 81.6 kg
[~2021-04-22 18:47] MED LIST changes: -CLEOCIN HCL150 MG PO; -FLORAJEN DIGES1 EACH PO; -MULTAQ400 MG PO; -PAROXETINE HCL10 MG PO
[2021-04-22] MEDS ORDERED: DOXYCYCLINE HY100 M2 PO (19:12)
[2021-04-22 22:00] VITALS: BP 179/80
[2021-04-22 22:04] LABS: BASOPHILS 0.8 % (0-2); EOSINOPHILS 2.7 % (0-7); HEMATOCRIT 29.2 % (36.0-48.0); HEMOGLOBIN 9.7 g/dL (12-16); LYMPHOCYTES 27.7 % (15-50); MCH 28.8 pg (26.0-34.0); MCHC 33.2 g/dL (31.0-37.0); MCV 86.6 fL (80.0-100.0); MEAN PLATELET VOLUME 7.8 fL (7.4-10.4); MONOCYTES 9.1 % (2-11); NEUTROPHILS 59.7 % (40-80); PLATELET COUNT 260 10x3/uL (130-400); RBC 3.37 10x6/uL (4.00-5.40); RDW 16.8 % (11.5-14.5); WBC 5.5 10x3/uL (4.8-10.8)
[2021-04-22 22:10] LABS: ANION GAP 15.4 mmol/L (8-16); CALCIUM 9.1 mg/dL (8.5-10.1); CARBON DIOXIDE 23.5 mmol/L (21.0-32.0); CREATININE - SERUM 1.3 mg/dL (0.6-1.3); POTASSIUM - SERUM 3.9 mmol/L (3.5-5.1)
[2021-04-22 22:16] LABS: ALBUMIN 3.1 g/dL (3.4-5.0); BILIRUBIN - TOTAL 0.4 mg/dL (0.2-1.3); PROTEIN - SERUM 8.1 g/dL (6.4-8.2)
[2021-04-22 22:50] VITALS: BP 187/68
[2021-04-22 23:24] VITALS: BP 190/61
[2021-04-23] VITALS (11 sets, daily range): BP systolic 76–174; BP diastolic 39–99; BMI 29.1
[2021-04-23 02:51] LABS: BILIRUBIN NEGATIVE (NEGATIVE); KETONE NEGATIVE mg/dL (< 1+); NITRITE NEGATIVE (NEGATIVE); PH 6.5 (5.0-8.0); UROBILINOGEN NORMAL mg/dL (< 2)
--- NOTE | 2021-04-23 03:30 | NUR ---
PT BLOOD PRESSURE LOW. CALLED MARIO OSBORNE FOR CONSULT. TELEPHONE ORDERED FOR 500MG/ BOLUS ONE TIME FOR SYSTOLIC LESS THAN 110. PT AWAKE AND ALERT AT THIS TIME.
[2021-04-23 05:17] LABS: APTT 40.4 SECONDS (22.8-39.4); INR 1.58 (0.85-1.17); PROTIME 17.5 SECONDS (11.6-15.0)
[2021-04-23 05:18] LABS: D-DIMER-QUANTITATIVE 0.45 ug/mLFEU (0.20-0.54)
[2021-04-23 05:23] LABS: % SATURATION 15 % (15-55); IRON 49 ug/dl (35-150); TOTAL IRON BIND CAPACITY 314 ug/dl (260-445); UNSAT IRON BIND CAPACITY 265 ug/dl (150-375)
[2021-04-23 05:41] LABS: CKMB 1.4 U/L (0.0-3.6); CREATINE KINASE 55 UL (21-215); FERRITIN 265 ng/mL (3-244); MAGNESIUM - SERUM 1.9 mg/dL (1.8-2.4)
[2021-04-23 05:42] LABS: TROPONIN-I < 0.017 ng/mL (0.000-0.060)
[2021-04-23] MEDS ORDERED: PAROXETINE HCL10 MG PO (06:32)
[2021-04-23 16:59] LABS: EOSINOPHILS 2.8 % (0-7); LYMPHOCYTES 29.9 % (15-50); MCH 28.6 pg (26.0-34.0); MCHC 32.4 g/dL (31.0-37.0); MCV 88.3 fL (80.0-100.0); MEAN PLATELET VOLUME 8.5 fL (7.4-10.4); MONOCYTES 10.3 % (2-11); PLATELET COUNT 246 10x3/uL (130-400); RBC 3.51 10x6/uL (4.00-5.40); RDW 17.4 % (11.5-14.5); WBC 4.7 10x3/uL (4.8-10.8)
[2021-04-23 17:00] LABS: ANION GAP 20.3 mmol/L (8-16); CALCIUM 9.5 mg/dL (8.5-10.1); CARBON DIOXIDE 18.9 mmol/L (21.0-32.0); CREATININE - SERUM 1.6 mg/dL (0.6-1.3); POTASSIUM - SERUM 4.2 mmol/L (3.5-5.1)
--- NOTE | 2021-04-24 00:45 | NUR ---
STAFFING CLERK REPORTS PT HAVING RUNS OF PVCs AND HAVING LONG RUNS OF VTAC INBETWEEN. PT DENIES CHEST PAIN. VS STABLE. 2L O2 APPLIED. STAT LABS ORDERED. EKG PERFORMED. MARIO OSBORNE APN NOTIFIED.
[2021-04-24 01:18] LABS: CALC OSMOLALITY 274 mosm/kg (275-300); CALCIUM 9.6 mg/dL (8.5-10.1); CHLORIDE - SERUM 100 mmol/L (98-107); CREATININE - SERUM 1.2 mg/dL (0.6-1.3); GLUCOSE 109 mg/dL (74-106); POTASSIUM - SERUM 4.4 mmol/L (3.5-5.1); SODIUM 133 mmol/L (136-145); UREA NITROGEN 36 mg/dL (7-18); eGFR NON AFRICAN AMERICAN 48 mL/min (90-120)
[2021-04-24 01:19] LABS: BASOPHILS 0.7 % (0-2); HEMATOCRIT 34.3 % (36.0-48.0); HEMOGLOBIN 10.6 g/dL (12-16); IMMATURE GRANULOCYTES 0.7 % (0-5); LYMPHOCYTE ABS# 1.13 10x3/uL (1.18-3.74); LYMPHOCYTES 28.1 % (15-50); MCH 28.9 pg (26.0-34.0); MCHC 30.9 g/dL (31.0-37.0); MCV 93.5 fL (80.0-100.0); MEAN PLATELET VOLUME 9.6 fL (7.4-10.4); MONOCYTES 10.7 % (2-11); NEUTROPHIL ABS# 2.28 10x3/uL (1.56-6.13); NEUTROPHILS 56.8 % (40-80); PLATELET COUNT 230 10x3/uL (130-400); RBC 3.67 10x6/uL (4.00-5.40); RDW 16.4 % (11.5-14.5)
--- NOTE | 2021-04-24 01:30 | NUR ---
PT CONVERTED BACK TO NORMAL SINUS. CONSULTED CARDIOLOGY, INSTRUCTED TO MAKE SURE CARDIAC MEDS HAVE BEEN RESTARTED AND CONTINUE TO MONITOR.
[2021-04-24 01:36] LABS: ALKALINE PHOSPHATASE 259 U/L (30-120); BILIRUBIN - TOTAL 0.46 mg/dL (0.2-1.3); CKMB 0.5 U/L (0.0-3.6); PROTEIN - SERUM 8.1 g/dL (6.4-8.2)
[2021-04-24 01:38] LABS: ALBUMIN 3.1 g/dL (3.4-5.0); ALT (SGPT) 55 U/L (10-68); CREATINE KINASE 1 UL (21-215); TROPONIN-I < 0.017 ng/mL (0.000-0.060)
--- NOTE | 2021-04-24 03:56 | NUR ---
I have reviewed this patient and I concur with the Shift Assessment completed by the Licensed Practical Nurse today this shift.
[2021-04-24 04:00] VITALS: BP 144/52
[2021-04-24 05:50] LABS: BASOPHILS 0.9 % (0-2); EOSINOPHILS 2.9 % (0-7); HEMATOCRIT 29.3 % (36.0-48.0); HEMOGLOBIN 9.7 g/dL (12-16); LYMPHOCYTES 32.9 % (15-50); MCH 28.7 pg (26.0-34.0); MCHC 32.9 g/dL (31.0-37.0); MEAN PLATELET VOLUME 7.9 fL (7.4-10.4); MONOCYTES 11.1 % (2-11); NEUTROPHILS 52.2 % (40-80); PLATELET COUNT 249 10x3/uL (130-400); RBC 3.36 10x6/uL (4.00-5.40); RDW 17.2 % (11.5-14.5); WBC 3.8 10x3/uL (4.8-10.8)
[2021-04-24 06:03] LABS: MCV 87.2 fL (80.0-100.0)
[2021-04-24 06:07] LABS: ALBUMIN 2.9 g/dL (3.4-5.0); ANION GAP 14.5 mmol/L (8-16); BILIRUBIN - TOTAL 0.4 mg/dL (0.2-1.3); CALCIUM 9.2 mg/dL (8.5-10.1); CARBON DIOXIDE 22.6 mmol/L (21.0-32.0); CREATININE - SERUM 1.2 mg/dL (0.6-1.3); MAGNESIUM - SERUM 1.9 mg/dL (1.8-2.4); POTASSIUM - SERUM 4.1 mmol/L (3.5-5.1); PROTEIN - SERUM 7.6 g/dL (6.4-8.2)
[2021-04-24 08:30] LABS: CKMB 0.3 U/L (0.0-3.6); CREATINE KINASE 38 UL (21-215); TROPONIN-I < 0.017 ng/mL (0.000-0.060)
[2021-04-24 09:23] VITALS: BP 152/63
--- NOTE | 2021-04-24 10:15 | NUR ---
RECIEVED REPORT FROM SKIP BEARDEN. PATIENT IN BED WITH IV INTACT. STATED SHE HAS NOT RECIEVED HER COREG, THAT THE NURSE THREW IT AWAY. NURSE STATED THAT SHE ALREADY GAVE IT TO HER. DID NOT FIND MED IN TRASH, ONLY EMPTY COREG PAPER. WILL CONTINUE CARE TO THIS PATIENT.
--- NOTE | 2021-04-24 10:30 | NUR ---
DR. MORGAN IN PATIENTS ROOM AT THIS TIME. STATED HE WOULD PROBABLY MOVE PATIENT TO PCU FOR A DRIP BC HR IS HIGH. ALSO ORDERED A DOSE OF METOPROLOL IV. PATIENT HAS NO DISTRESS AT THIS TIME. WAITING FOR PHARMACY TO VERIFY MED. [facility]
--- NOTE | 2021-04-24 10:49 | NUR ---
METOPROLOL GIVEN IV PUSH ORDERED OVERED 4 MINUTES. WILL CONTINUE TO MONITOR.
--- NOTE | 2021-04-24 12:00 | NUR ---
TELEMETRY STATED HR IS 112 AT THIS TIME. WILL CONTINUE TO MONITOR.
[2021-04-24 12:31] VITALS: BP 134/85
--- NOTE | 2021-04-24 14:10 | NUR ---
PATIENT IV HURTING HER. REMOVED WITH CATH TIP INTACT. RESTARTED IN LEFT WRIST X 3 STICKS. TOLERATED WITH NO PAIN. ESCORTED PATIENT TO ROOM 2113 TO BE PUT ON DRIP. NOTIFIED NURSE PATIENT IS DUE TO EKG. JUST NOW GOT BLOOD DRAWN. PATIENT TAKEN WITH PERSONAL BELONGING VIA .
[2021-04-24 14:24] VITALS: BP 139/47
--- NOTE | 2021-04-24 14:37 | NUR ---
RECEIVED PT TO ROOM 2113 VIA WHEELCHAIR. PT A/O X4, RESP EVEN AND NONLABORED ON RA. LT WRIST IV PATENT, AMIODARONE BOLUS STARTED AT THIS TIME. THEN WILL START AMIODARONE DRIP. ORIENTED PT TO ROOM AND CALL LIGHT, ALL NEEDS MET. WILL CONTINUE PLAN OF CARE.
[2021-04-24 14:44] LABS: CKMB 0.7 U/L (0.0-3.6); CREATINE KINASE 47 UL (21-215); TROPONIN-I < 0.017 ng/mL (0.000-0.060)
[2021-04-24 14:50] VITALS: BP 136/54
--- NOTE | 2021-04-24 19:38 | NUR ---
RECIEVED UPIN BED WITH EYES OPEN AND TV ON. ALERT AND ORIENTED. UP WITH WALKER TO AMBULATE. DENIES ANY NEED AT THIS TIME.
[2021-04-24 20:00] VITALS: BP 104/74
[2021-04-25] VITALS: BP 107/67
[2021-04-25 05:15] VITALS: BP 124/62
[2021-04-25 05:21] VITALS: BP 81/48
[2021-04-25 06:02] LABS: BASOPHILS 0.9 % (0-2); EOSINOPHILS 2.1 % (0-7); HEMATOCRIT 30.4 % (36.0-48.0); LYMPHOCYTES 29.1 % (15-50); MCH 28.7 pg (26.0-34.0); MCHC 32.8 g/dL (31.0-37.0); MCV 87.5 fL (80.0-100.0); MEAN PLATELET VOLUME 7.8 fL (7.4-10.4); MONOCYTES 11.4 % (2-11); NEUTROPHILS 56.5 % (40-80); RBC 3.48 10x6/uL (4.00-5.40); RDW 17.2 % (11.5-14.5)
[2021-04-25 06:04] LABS: PLATELET COUNT 303 10x3/uL (130-400); WBC 4.9 10x3/uL (4.8-10.8)
[2021-04-25 06:06] LABS: ALBUMIN 3.2 g/dL (3.4-5.0); ANION GAP 16.7 mmol/L (8-16); BILIRUBIN - TOTAL 0.3 mg/dL (0.2-1.3); CALCIUM 9.5 mg/dL (8.5-10.1); CARBON DIOXIDE 22.2 mmol/L (21.0-32.0); CREATININE - SERUM 1.4 mg/dL (0.6-1.3); POTASSIUM - SERUM 3.9 mmol/L (3.5-5.1); PROTEIN - SERUM 8.1 g/dL (6.4-8.2)
[2021-04-25 09:17] VITALS: BP 101/59
[2021-04-25 12:01] VITALS: Ht 167.6 cm; Wt 81.6 kg
[2021-04-25 12:19] VITALS: BP 114/79
[2021-04-25] MEDS ORDERED: CLEOCIN HCL150 MG PO (14:05)
[2021-04-25] MEDS ORDERED: DOXYCYCLINE HY100 M2 PO (14:05)
[2021-04-25] MEDS ORDERED: MULTAQ400 MG PO (14:06)
[2021-04-25] MEDS ORDERED: FLORAJEN DIGES1 EACH PO (14:07)
--- NOTE | 2021-04-25 15:52 | NUR ---
IV AND TELEMETRY DCD. DC PLANS GIVEN. UNDERSTANDING VOICED. ESCORTED TO CAR BY W/C.
== END 2021-04-25 15:52 | disposition home or self-care (01) | DRG 74 ==
LOC: D.ER 18:47 → D.EDHOLD 22:59 → D.M2 22:59 → D.MS 22:59 → D.M2 04-24 14:14
PROVIDERS: Emergency Medicine; Family Medicine; ADMIT Family Medicine; ATTEND Family Medicine
DX: E11.610 Type 2 diabetes mellitus with diabetic neuropathic arthropathy (principal); E87.1 Hypo-osmolality and hyponatremia; E11.65 Type 2 diabetes mellitus with hyperglycemia; D64.9 Anemia, unspecified; G89.29 Other chronic pain; M54.9 Dorsalgia, unspecified; E11.22 Type 2 diabetes mellitus with diabetic chronic kidney disease; I12.9 Hypertensive chronic kidney disease with stage 1 through stage 4 chronic kidney disease, or unspecified chronic kidney disease; N18.9 Chronic kidney disease, unspecified; I25.10 Atherosclerotic heart disease of native coronary artery without angina pectoris; Z95.1 Presence of aortocoronary bypass graft; L08.89 Other specified local infections of the skin and subcutaneous tissue; R00.0 Tachycardia, unspecified; I48.0 Paroxysmal atrial fibrillation